=== PATIENT | male | born 1945 | race Caucasian/White ===

== ENCOUNTER 2019-03-12 11:57 | Inpatient (IN) | payer MEDICARE, OTHER ==
--- OUTSIDE RECORDS SUMMARY | 2019-03-12 12:06 | XMS REPORT | Continuity of Care Document ---
:1945 External Reference #:[id number] Author Name Juma Gage MD (transmitted by agent of provider Dalia Brumfield ) Address [address] [place] [address] Care Team Providers Name Role Phone Dioni Schultz II, MD - Hospitalist Care Team Information Hosting Engineer Unavailable Ric Lund D.OMandy - Internal Care Team Information Hosting Engineer Medicine Problems Description No Information Available Social History Type Date Description Comments Sex Unknown ETOH Use Never used alcohol Tobacco Use Start: Unknown End: Patient is a former smoker Unknown Recreational Drug Use Never Used Drugs Smoking Status Reviewed: 03/10/19 Patient is a former smoker Exercise Type/Frequency Does not exercise Allergies, Adverse Reactions, Alerts Active Allergies Reaction Severity Comments Date Valproic Acid Vomiting 03/10/2019 Medications Active Medications SIG Qnty Indications Ordering Provider Date Metoprolol Tartrate 1 by mouth Unknown 50mg twice a day Tablets Acetazolamide 1 by mouth Unknown 250mg Tablets twice a day Sertraline HCL 1 by mouth Unknown 25mg Tablets every day Immunizations Description No Information Available Vital Signs Date Vital Result Comment 03/10/2019 1:12pm Height 78 inches 6'6" Weight 240.00 lb Heart Rate 70 /min Pain Level 0 BMI (Body Mass Index) 27.7 kg/m2 Results Description No Information Available Procedures Description No Information Available Medical Devices Description No Information Available Encounters Description No Information Available Assessments Date Code Description Provider 03/10/2019 G91.9 Hydrocephalus, unspecified Juma Gage MD Plan of Treatment Future Appointment(s):05/24/2019 12:00 pm - Juma Gage MD at [facility]03/10/2019 - Juma Gage MDG91.9 Hydrocephalus, unspecifiedReferral:Ganesh Zavala M.D., NeurologyFollow up: RV in [address] Zavala's evaluation. Functional Status Description No Information Available Mental Status Description No Information Available Referrals Refer to Reason for Referral Status Appt Date Ganesh Zavala M.D. Eval for possible NPH Created [address] [place] [address] [place] [address] [phone]
[2019-03-12] MEDS ORDERED: NS 0.9% 500 ML* 500 ML IV ONE (12:17)
--- NOTE | 2019-03-12 12:22 | ED ---
Altered Mental Status - HPI Summary HPI Summary: This pt is a 73 Y/O M presenting to [facility] with a CC of weakness that has been increasing since the onset. He states that he vomited yesterday and has had a cough. He denies any fever, chills, erythema of eyes, sore throat, CP, SOB, abdominal pain, dysuria, hematuria, myalgia, edema, rash, or dizziness. He was seen by his neurosurgeon on Friday and has had increased confusion with increased incontinence including an increase in diarrhea. He has been unable to walk correctly for four years and has had a diagnosis of hydrocephalus. He has no other pertinent PMHx and denies any alcohol, smoking, or substance abuse. He has no alleviating or aggravating factors. - History Of Current Complaint Chief Complaint: EDWeakness Stated Complaint: BACK PAIN PER EMS Time Seen by Provider: 03/12/19 12:01 Hx Obtained From: Patient, Family/Budget Coordinator - Last Known Well Date: UNK Onset/Duration: Unknown, Still Present - states posibility of 4 years onset Timing: Constant Severity Initially: Moderate Severity Currently: Moderate Character: Confusion Aggravating Factor(s): Nothing Alleviating Factor(s): Nothing Associated Signs And Symptoms: Positive: Negative - chills, erythema of eyes, sore throat, CP, SOB, abdominal pain, dysuria, hematuria, myalgia, edema, rash, or dizziness, Nausea, Vomiting, Weakness. Negative: Fever Related History: Other: - has a Dx of hydrocephalus - Allergies/Home Medications Allergies/Adverse Reactions: Allergies Allergy/AdvReac Type Severity Reaction Status Date / Time acetaminophen Allergy Vomiting Verified 03/12/19 15:14 propoxyphene Allergy Vomiting Verified 03/12/19 15:14 Home Medications: Home Medications Metoprolol Tartrate TAB* [Lopressor TAB*] 50 mg PO BID 03/12/19 [History Confirmed 03/12/19] Sertraline* [Zoloft*] 25 mg PO DAILY 03/12/19 [History Confirmed 03/12/19] acetaZOLAMIDE TAB* [Diamox TAB*] 250 mg PO BID 03/12/19 [History Confirmed 03/12] PMH/Surg Hx/FS Hx/Imm Hx Previously Healthy: Yes Endocrine/Hematology History: Denies: Hx Diabetes Cardiovascular History: Denies: Hx Hypertension, Hx Pacemaker/ICD Respiratory History: Denies: Hx Asthma History: Denies: Hx Dialysis, Hx Renal Disease Sensory History: Denies: Hx Hearing Aid Psychiatric History: Denies: Hx Panic Disorder - Cancer History Hx Chemotherapy: No Hx Radiation Therapy: No - Surgical History Surgical History: Yes Surgery Procedure, Year, and Place: Left knee surgery, , [place] - Immunization History Immunizations Up to Date: Yes Infectious Disease History: No Infectious Disease History: Denies: Traveled Outside the [place] in Last 30 Days - Family History Known Family History: Negative: Respiratory Disease - Social History Occupation: Retired Lives: With Family Alcohol Use: None Hx Substance Use: No Substance Use Type: Reports: None Hx Tobacco Use: No Smoking Status (MU): Never Smoked Tobacco Review of Systems Negative: Fever, Chills Negative: Erythema Negative: Sore Throat Negative: Chest Pain Negative: Shortness Of Breath, Cough Positive: Vomiting, Diarrhea, Nausea. Negative: Abdominal Pain Positive: incontinence. Negative: dysuria, hematuria Negative: Myalgia, Edema Positive: Rash Neurological: Other - altered gait. Positive: Weakness All Other Systems Reviewed And Are Negative: Yes Physical Exam - Summary Physical Exam Summary: Constitutional: Well-developed, Well-nourished, Alert. (-) Distressed, odor of urinary incontinence. Skin: Warm, Dry HENT: Normocephalic; Atraumatic Eyes: Conjunctiva normal Neck: Musculoskeletal ROM normal neck. (-) JVD, (-) Stridor, (-) Tracheal deviation Cardio: Rhythm regular, rate normal, Heart sounds normal; Intact distal pulses; The pedal pulses are 2+ and symmetric. Radial pulses are 2+ and symmetric. (-) Murmur Pulmonary/Chest wall: Effort normal. (-) Respiratory distress, (-) Wheezes, (-) Rales Abd: Soft, (-) tenderness, (-) Distension, (-) Guarding, (-) Rebound Musculoskeletal: 1+ lower extremity edema Lymph: (-) Cervical adenopathy Neuro: Alert, Oriented x3 Psych: Mood and affect Normal Triage Information Reviewed: Yes Vital Signs On Initial Exam: Initial Vitals Temp Pulse Resp BP Pulse Ox 97.9 F 89 15 155/85 94 03/12/19 11:59 03/12/19 11:59 03/12/19 11:59 03/12/19 11:59 03/12/19 11:59 Vital Signs Reviewed: Yes Procedures - Sedation Patient Received Moderate/Deep Sedation with Procedure: No Diagnostics - Vital Signs Vital Signs Temp Pulse Resp BP Pulse Ox 03/12/19 11:59 97.9 F 89 15 155/85 94 - Laboratory Result Diagrams: 03/12/19 12:25 03/12/19 12:25 Lab Statement: Any lab studies that have been ordered have been reviewed, and results considered in the medical decision making process. - Radiology CXR Radiology Interpretation Completed By: Radiologist Summary of Radiographic Findings: NO ACTIVE CARDIOPULMONARY DISEASE IS NOTED. ED physician has reviewed this report. - CT Brain CT CT Interpretation Completed By: Radiologist Summary of CT Findings: AGAIN NOTED IS VENTRICULOMEGALY SUGGESTIVE OF A COMMUNICATING HYDROCEPHALUS SIMILAR TO FEBRUARY 12, 2019. ED physician has reviewed this report. - EKG 1220 Cardiac Rate: NL - 82 BPM EKG Rhythm: Sinus Rhythm ST Segment: Normal Ectopy: None Summary of EKG Findings: NSR at 82 BPM, P waves, QRS complex, and T waves are within normal limits, T waves and intervals are normal, no ischemic changes. This is a normal EKG. Interpreted by Dr. Abad 1255 03/12/2019. Altered Mental Statu Course/Dx - Course Course Of Treatment: This pt is a 73 Y/O M presenting to [facility] with a CC of weakness that has been increasing since the onset. He states that he vomited yesterday and has had a cough. He denies any fever, chills, erythema of eyes, sore throat, CP, SOB, abdominal pain, dysuria, hematuria, myalgia, edema, rash, or dizziness. He was seen by his neurosurgeon on Friday and has had increased confusion with increased incontinence including an increase in diarrhea. He has a PMHx of hydrocephalus. His PE found 1+ lower extremity edema and an odor of urinary incontinence. EKG at 1220 found NSR at 82 BPM, P waves, QRS complex, and T waves are within normal limits, T waves and intervals are normal, no ischemic changes. This is a normal EKG. His CXR found the following: NO ACTIVE CARDIOPULMONARY DISEASE IS NOTED. His Brain CT found the following: AGAIN NOTED IS VENTRICULOMEGALY SUGGESTIVE OF A COMMUNICATING HYDROCEPHALUS SIMILAR TO FEBRUARY 12, 2019. Dr. Gage, neurosurgery, was consulted at 1420 to discuss further work up and care for the pt. He recommends admitting the pt for further care to [facility] with a Dx of hydrocephalus and weakness. - Diagnoses Provider Diagnoses: Hydrocephalus, Weakness - Provider Notifications Discussed Care Of Patient With: Rebecca Gonsales Time Discussed With Above Provider: 14:37 Instructed by Provider To: Admit As Inpatient Admit/Transition Orders Completed By ED Provider: Yes Discharge ED - Sign-Out/Discharge Documenting (check all that apply): Patient Departure - admitted - Discharge Plan Condition: Stable Disposition: ADMITTED TO [facility] Referrals: Ric Lund DO [Primary Care Provider] - - Attestation Statements Document Initiated by Scribe: Yes Documenting Scribe: Josh Benson Provider For Whom Scribe is Documenting (Include Credential): Ricardo Abad MD Scribe Attestation: Josh Perez, scribed for Ricardo Abad MD on 03/12/19 at 1713. Status of Scribe Document: Ready Consult Consult: Dr. Gage, neurosurgery, was consulted at 1420 to discuss further work up and care for the pt. He recommends admitting the pt for further care to [facility] with a Dx of hydrocephalus and weakness. At 1438 the pt was admitted by Dr. Gonsales, hospitalist, for further care.
[2019-03-12 13:00] LABS: ABS Lymphocytes 1.6 10^3/ul (1.0-4.8); ABS Monocytes 0.7 10^3/ul (0-0.8); ABS Neutrophils 5.8 10^3/ul (1.5-7.7); Eosinophil % 0.4 %; Hematocrit 46 % (42-52); Hemoglobin 15.9 g/dL (14.0-18.0); Lymphocyte % 19.7 %; Mean Corpuscular HGB Conc 34 g/dL (31-36); Mean Corpuscular Hemoglobin 30 pg (27-31); Mean Corpuscular Volume 89 fL (80-94); Mean Platelet Volume 7.4 fL (7.4-10.4); Nucleated Red Blood Cells % 0.1; Platelet Count 207 10^3/uL (150-450); Red Blood Count 5.22 10^6 /uL (4.18-5.48); Red Cell Distribution Width 15 % (10-15); White Blood Count 8.2 10^3/uL (3.5-10.8)
[2019-03-12 13:24] LABS: Albumin/Globulin Ratio 1.3 (1-3); BUN/Creatinine Ratio 21.8 (8-20); Calcium 8.9 mg/dL (8.6-10.3); EGFR African American 87.9 (>60); EGFR Non-African American 72.6 (>60); Globulin 3.2 g/dL (2-4); Potassium 4.1 mmol/L (3.5-5.0); Total Bilirubin 0.5 mg/dL (0.2-1.0); Total Protein 7.2 g/dL (6.4-8.9)
[2019-03-12 13:27] LABS: Activated Partial Thrombo Time 19.1 seconds (26.0-38.0)
[2019-03-12 14:07] LABS: Urine Appearance Clear; Urine Bilirubin Negative (Negative); Urine Blood 1+ (Negative); Urine Color Yellow; Urine Glucose Negative (Negative); Urine Ketones Negative (Negative); Urine Nitrite Negative (Negative); Urine Protein Negative (Negative); Urine Specific Gravity 1.021 (1.010-1.030); Urine Urobilinogen Negative (Negative)
[2019-03-12 14:09] LABS: Urine Bacteria Absent (Absent); Urine Red Blood Cell 3+(>10/hpf) (Absent); Urine Squamous Epithelial Cell Present (Absent); Urine White Blood Cell Trace(0-5/hpf) (Absent)
[2019-03-12] MEDS ORDERED: NS 0.9% 1000 ML** 1,000 ML IV ONE (16:05)
[2019-03-12 17:31] LABS: TSH (Thyroid Stimulating Horm) 1.79 mcIU/mL (0.34-5.60)
[2019-03-12 17:35] LABS: Free T4 0.92 ng/dL (0.61-1.12)
[2019-03-12 17:43] LABS: Folate 13.83 ng/mL (>3.99)
[2019-03-12 20:02] LABS: C Reactive Protein 1.84 mg/L (<8.01)
--- NOTE | 2019-03-12 20:05 | CONS ---
CONSULTATION REPORT: DATE OF CONSULT: 03/12/19 HISTORY OF PRESENT ILLNESS: The patient is a very pleasant 73-year-old gentleman who was seen in our office recently and has been evaluated for normal pressure hydrocephalus. The patient has long history of memory deficits and difficulty with his balance. The patient was evaluated by Dr. Spangler in 2016 and because of MRI revealing possible hydrocephalus, he had undergone lumbar puncture and at that time, the patient's condition was not considered to be improved after that lumbar puncture, although his reported to me that when he returned home, he had improvement of his ability to ambulate. The patient for the last 6 months has been having urinary incontinence. The patient was referred to Dr. Zavala for further evaluation. He comes to the emergency room today for generalized weakness and an episode of vomiting yesterday and cough. The patient also was found to be dehydrated and has a history of diarrhea. The patient has difficulties with his ambulation at his baseline, has difficulty with his memory and he is reported to have urinary incontinence. The patient's history was obtained by Dr. Abad in the emergency room and the patient's chart as well as from his history from the previous visit. PAST MEDICAL HISTORY: Not clear at this time. PAST SURGICAL HISTORY: Left knee surgery. HOME MEDICATIONS: 1. Metoprolol succinate. 2. Diamox. ALLERGIES: The patient is allergic to ACETAMINOPHEN and PROPOXYPHENE. FAMILY HISTORY: Not known at this time. SOCIAL HISTORY: Tobacco negative. Alcohol negative. Recreational drug use negative. PHYSICAL EXAM: On physical examination, the patient is not in acute distress. He is awake, alert, oriented x3. His pupils are equal and reactive. Cranial nerves II through XII are grossly intact. Motor 4-5/5 in all extremities. No pronator drift. Sensory grossly intact to light touch. Deep tendon reflexes + 1 bilaterally. No clonus, no Babinski. Neal's negative. The patient has no tenderness to palpation of the thoracic and lumbar spine. He has free range of motion of the cervical spine. DIAGNOSTIC STUDIES/LAB DATA: The patient had a CT scan of the brain today that revealed ventriculomegaly and cerebral atrophy with suspicion of hydrocephalus. Recent MRI imaging as well as today's CT was reviewed with Dr. Lazaro and there does not seem to be any difference in his imaging back to other studies from 2016. ASSESSMENT: The patient is a very pleasant 73-year-old gentleman with history of cognitive decline, memory difficulties, balance problems as well as incontinence with CT scan findings consistent with hydrocephalus with a clinical suspicion for possible normal pressure hydrocephalus. PLAN: The patient at this point is doing quite well neurologically. According to recent CT findings, there is not a significant change in the ventricular size. I think that his clinical exam as well as his CT scan findings are stable. Dr. Gonsales from the hospitalist team has kindly agreed to admit the patient and he has contacted Dr. Zavala for further evaluation. Repeat MRI of brain may be considered if other etiologies for altered mental status are needed to be excluded. Thank you for allowing us to participate in the care of this patient. Please do not hesitate to contact our office in case if you have any further questions or concerns regarding the care of this patient. [id number]/[facility] #: [id number] MTDD
[2019-03-12 20:07] LABS: Myoglobin 233.2 ng/mL (17.4-105.7)
--- NOTE | 2019-03-12 20:45 | HP ---
CC: Ric Lund DO * HISTORY AND PHYSICAL: DATE OF ADMISSION: 03/12/19 PRIMARY CARE PHYSICIAN: Ric Lund DO. HEALTHCARE PROXY: Ledy Holley, his , phone number [phone]. CODE STATUS: Full. CHIEF COMPLAINT: Multiple falls at home associated with incontinence. HISTORY OF PRESENT ILLNESS: Mr. Holley is a 73-year-old man with a history of hypertension, possible history of NPH, who is presenting with progressive weakness and multiple falls for days. Of note, the patient is a poor historian and was unable to answer most questions. The patient states that he just falls randomly at home and when he does fall, he is unable to get himself up and his also has difficulty bringing him up as well. He denies head strike or loss of consciousness when he falls. He states he has significant lower extremity weakness. He states he falls "for the dumbest reasons" and sometimes just drops down on the ground. He has also been experiencing incontinence of urine, but not of stool. Of note, the patient was seen by Neurosurgery 2 days prior to presentation for his history of NPH and was at his baseline of health at that time, but then since then has become increasingly more confused. He denies fevers, chills, dysuria, new rash, headache, slurred speech. PAST MEDICAL HISTORY: 1. Admission in 2016 for confusion, weakness, gait instability, and incontinence. The patient had LP done with opening pressure at the upper limit of normal. It is unclear how significantly his symptoms improved after that time. 2. Hypertension. 3. Major depressive disorder. HOME MEDICATIONS: 1. Metoprolol tartrate 50 mg twice a day. 2. Acetazolamide 250 mg twice a day. 3. Sertraline 25 mg daily. ALLERGIES: TYLENOL causes vomiting. PROPOXYPHENE causes vomiting. FAMILY HISTORY: Mother passed in her 80s from ruptured aortic aneurysm. Father passed at 59 from infection. SOCIAL HISTORY: The patient lives at home with his . 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 He states that he smoked briefly during the war when the cigarettes were free, but has not smoked since. He denies recreational drug or alcohol use. REVIEW OF SYSTEMS: A complete 10-point review of systems was performed and pertinent positives and negatives are listed in the HPI. PHYSICAL EXAMINATION GENERAL: He is a well-appearing man in no acute distress, who is alert and interactive, occasionally jokes. The patient is malodorous from urinary incontinence. VITAL SIGNS: Afebrile, heart rate 80s, blood pressure 120/71, respiratory rate 18, oxygen saturation 97% on room air. HEENT: OP clear. Moist mucous membranes. NECK: Supple. Able to touch chin to chest without pain. LUNGS: Clear to auscultation bilaterally. HEART: Regular rate and rhythm. No murmurs, gallops, or rubs. ABDOMEN: Soft. Nontender, nondistended. No suprapubic tenderness or fullness. LOWER EXTREMITIES: Without edema. NEURO: A and O x3. CN II through XII intact. No slurred speech. Sensation intact in 4 extremities. Upper extremities 5/5 strength, lower 4/5 strength. DIAGNOSTIC STUDIES/LAB DATA: CBC, BMP, LFTs, and UA unremarkable. Chest x-ray without active cardiopulmonary disease. Brain CT without contrast with ventriculomegaly suggestive of a communicating hydrocephalous similar to 02/12/19. EKG with normal sinus rhythm, rate 82. ASSESSMENT AND PLAN: Mr. Holley is a 73-year-old man with a history of normal pressure hydrocephalus, who is presenting with weakness and urinary incontinence and intermittent episodes of confusion. His labs and brain CT were unremarkable. 1. Weakness. Appreciate neuro consult. The patient is pending brain MRI and workup for thyroid disorder, inflammatory disorder, or B12 deficiency. The patient was also seen and evaluated by Dr. Gage who sees no need for acute neurosurgical intervention at this time. PT and OT have been ordered. The patient did report thirst and it was noted that he was unable to produce urine and when straight cathed, only produced 100 cc, so we will continue the patient on gentle IV hydration. We will continue the patient's home acetazolamide. 2. Hypertension. Continue the patient's home metoprolol. 3. Major depressive disorder. Continue home sertraline 25 mg daily. 4. DVT prophylaxis: Initiate enoxaparin 40 mg subcu daily. 5. Code status: Full code. TIME SPENT: Approximately 60 minutes was spent on admission of this patient, more than half of which was spent at bedside for interview and exam. [id number]/[facility] #: [id number] [facility]
[2019-03-12] MEDS: Enoxaparin(*) 40 MG/0.4 ML SYR SUBCUT SCH (21:09)
[2019-03-12] MEDS: Metoprolol Succinate XL TAB* 100 MG PO SCH (21:10)
[2019-03-12] MEDS: NS 0.9% 1000 ML** 1,000 ML IV SCH (21:10)
--- NOTE | 2019-03-12 22:25 | CONS ---
CC: Dr. Ric Lund CONSULTATION REPORT: DATE OF CONSULT: 03/12/19 PRIMARY CARE PROVIDER: Dr. Ric Lund. REASON FOR CONSULTATION: History of normal-pressure hydrocephalus, worsening weakness. HISTORY OF PRESENT ILLNESS: Mr. Holley is a 73-year-old gentleman with a history of progressive ga it difficulty, bladder incontinence, memory loss, also a history of hyperlipidemia, cataracts, knee s urgery on the left, who has a long history of diagnosed normal-pressure hydrocephalus. He was initia lly seen by Dr. Miranda in our hospital back in 2016. At that time, he was noted to have months of dec reasing progressive memory loss repeating the same question and remembering conversations. His appeti te had been poor. He was having urinary incontinence. He had a slow and shuffling gait, and he had an MRI at that time that was concerning for normal- pressure hydrocephalus. During that hospitalizat ion, he did have a lumbar puncture and high volume tap and apparently did not have much improvement a t that time, but when he got home, his noted that he did improve, so there were some question as to whether or not he truly did have normal-pressure hydrocephalus responsive to a high volume tap. In any event, he has not been seen since that time by our neurology group. He was recently admitted to the hospital on 02/12/19. At that time, he had a very marked decline in his status that occurred within hours. He became progressively weak, could not walk, had bladder incontinence. He had one ep isode of stool incontinence as well. His noted that he seemed more sleepy and tired. He was ul timately admitted to [facility] where workup including an MRI and CT scan reportedly show conc marian for normal-pressure hydrocephalus. He also was diagnosed with bronchitis and was treated aggress ively. He subsequently was discharged to a physical therapy unit and was just discharged home a [facility] over a week ago. His states that he had been better. He was able to walk with some assistan ce, but he continued to be incontinent of urine, although no bowel incontinence. She noted that his memory was at baseline with poor short-term memory asking the same questions over and over. No signi ficant behavioral changes. He had no falls since that time. He has had no fever or chills. He denie s any shortness of breath, dyspnea on exertion or other medical problems since his discharge from the [facility]. On Friday night of this week, he seemed to be taking another precipitous decline. He carlota me progressively more weak, became more incontinent of urine, could not get up out of chair. This pe rsisted on and finally his brought him to the hospital today because he is progressivel y worsening, getting weaker, getting more confused, and he was having significant bladder incontinenc e, no bowel incontinence. His states that this was similar in presentation to his hospitalati on in January of 2017 as well as to his prior hospitalization in May of 2015. She states that all 3 episodes were similar in nature. He is being admitted today for worsening mental status, worsenin g weakness. PAST MEDICAL HISTORY: As noted above. MEDICATIONS: At home include: 1. Metoprolol 50 mg b.i.d. 2. Acetazolamide 250 mg p.o. b.i.d., which he was put on at his last hospitalization in [place]. 3. Sertraline 25 mg p.o. daily. ALLERGIES: ACETAMINOPHEN and PROPOXYPHENE. FAMILY HISTORY: There is a history of dementia, otherwise no significant family medical history. 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 No tobacco or alcohol use reported by his . REVIEW OF SYSTEMS: Review of systems in 14-organ systems was difficult to obtain by the patient carlota use he has poor insight, but his states that he has had no headaches, nausea, vomiting, diarrhea or constipation. No chest pain or shortness of breath. No fevers. He otherwise until Friday wa s improving. PHYSICAL EXAM: Vital signs in the hospital, he is afebrile 97.9, heart rate of 88, respiratory rate of 17, satting 98% to 99% on room air, blood pressure 139/85. In general, he is a well-developed, we ll-nourished, tall gentleman in no acute distress, lying in his hospital bed sleeping comfortably. Alona madison did awaken to voice. His is at the bedside and was able to provide some history. HEENT: Normo cephalic, atraumatic. His sclerae are anicteric. His mucous membranes are slightly dry. His oropha rynx is clear. His nares are patent. His neck is somewhat stiff in all directions. No meningismus appreciated. Chest is clear to auscultation bilaterally. Cardiovascular: Regular rate and rhythm w ithout murmurs. Abdomen is nontender. Extremities: There is no significant cyanosis or clubbing. There is some 1+ edema in the legs bilaterally, nonpitting. His skin is otherwise warm and dry. On neurologic exam, he is awake, he is alert, he is oriented to person only. His speech is fluent, but he is hypophonic and has a positive speech. He did answer questions at times not appropriately. His recall of recent and remote events is impaired. He is oriented only to person. Mood is dysthymic. Affect mood congruent. Cranial Nerves: Pupils are equal and round and reactive to light. Extraocu lar muscles: He has some difficulty with vertical gauze persistence. No slow saccades appreciated. No nystagmus appreciated. No diplopia or apoptosis appreciated. His face appears symmetric. His f acial sensation is intact to light touch. Hearing is intact bilaterally. Palate raises symmetricall y. Tongue is midline. Motor Exam: He spontaneously moves all extremities antigravity. He has 5/5 strength in the upper and lower extremities. He is able to maintain extended arms and legs without dr ift. His tone is increased significantly in the upper and lower extremities. He had some cogwheelin g in the right upper extremity with distractions, more so than the left. He had no significant resti ng tremor, although he did have a jaw tremor at times when distracted. His bapook-qb-eedg was slow. Rapid alternating movements including finger tap, hand clasp, pronation, and supination were very di fficult on the left more so than the right, but they were slow. Sensation is intact to light touch a nd pinprick throughout. DTRs were down throughout, trace at the patella, trace at the biceps and tri ceps, absent at the ankles, equivocal Babinski's. Gait: I attempted to get him up with the help of nurse. He was very unsteady on his feet, very slow to get up and could not maintain posture or stanc e, once we got him up, so we sat him back down. I was unable to really evaluate his gait. DIAGNOSTIC STUDIES/LAB DATA: Lab work includes an INR of 1.0. PTT of 19.1. CBC with diff, which is in normal limits. Chemistry: Carbon dioxide of 20, BUN and creatinine of 21 and 0.8, glucose of 10 7. LFTs normal. Urine showed 1+ blood, 3+ rbc's. He also had a chest x-ray done, which showed no active cardiopulmonary disease. He also had a brain CT done, which showed ventriculomegaly suggestive of communicating hydrocephalus similar to 02/12/19. ASSESSMENT AND PLAN: Mr. Holley is a 73-year-old gentleman with a known history of ventriculomegal y, gait abnormalities, urinary incontinence, memory difficulties dating back to May of 2015 if not before. He was evaluated in the hospital then and it was felt that he likely had normal-pressure hyd rocephalus, although he did not have a good response to a large volume tap. Subsequently though paul ral days later, his reported that he did improve. He was recently seen by Dr. Gage in [facility], who agreed that his ventricles were large and given his symptoms he might indeed have normal-pre ssure hydrocephalus. He was going to be referred to me, but on Friday, the patient took a dramati c turn for the worse, became very weak, more confused, more incontinent of urine, unable to ambulate, and he worsened over the next day. Finally, his brought him to the hospital today because he c ould not get up, he was very confused, and was incontinent. On examination today, I could not evalua te his gait, clearly he has some memory deficits, and he is wearing a diaper and is incontinent of ur ine, not stool. He has Parkinsonian symptoms on examination and I worried about the possibility of s omething like a Lewy body dementia. His denies any lightheadedness. There is a unilateral natu re to his cogwheeling rigidity and rapid alternative movement more so on the left than the right. He does not have any significant resting tremor, although he did have a jaw tremor with distraction. H is describes his gait is very shuffling in small steps. All of this lends itself to the idea th at he may be suffering from either Lewy body dementia or Parkinson's associated dementia. He did hav e some difficulty with upward gaze, but has not been falling. PSP and multisystem atrophy are also wi thin the differential as well. At this point, he is being admitted for further workup. We are going to get an MRI to make sure he has not had an acute event, which might have caused his rapid decline on Friday. He is going to be hydrated and we will continue to search for any medical issues, whic h might be causing his worsening. This could just be worsening of his disease, although the sudden c hanges atypical for normal-pressure hydrocephalus or Lewy body dementia suggesting that there may be something other causing his acute worsening. With this said, I would like to work him up again for n ormal-pressure hydrocephalus, but I explained to his that this is something that will likely nee d to be done on an outpatient basis. Currently, he is not even able to walk, so I would not be able to evaluate his gait for any improvement, and it sounds like he may have a Parkinsonian component. I n addition, I would want to get better sense of his cognitive functioning, but I would not want to do that inpatient while he is acutely ill. I explained that what we may do is try to stabilize him, ge t him some physical therapy, maybe some rehab, so that he can get to a baseline. At that point, I wi ll see him back. We will consider large volume tap with appropriate evaluation before and after. Th ere is also the option of a normal-pressure hydrocephalus clinic at the [facility] that we can consider as well. He will be admitted to the medicine service, I will continue to follow leonidas aguillon. I have no further recommendations at this time. Thank you for the opportunity to participate in the care of this very interesting patient. [id number]/[facility] #: [id number]
[2019-03-12] MEDS: acetaZOLAMIDE TAB* 250 MG PO SCH (22:31)
--- NOTE | 2019-03-13 07:51 | PN ---
Subjective Date of Service: 03/13/19 Interval History: Admitted yesterday for gait abnormalities, inability to walk, and recurrent falls. Brain MRI unremarkable - largely unchanged from last month. Labs unrevealing except for mildly increased CK. No acute events overnight. Will DC IVF if good PO today. Neuro following. Pt states he feels well. Doesn't remember that he worked with PT today. Still feels weak. Doesn't think he can walk. Denies headache. Objective Active Medications: Acetazolamide (Diamox Tab*) 250 mg PO BID [facility] Last Admin: 03/12/19 22:31 Dose: 250 mg Enoxaparin Sodium (Lovenox(*)) 40 mg SUBCUT Q24H [facility] Last Admin: 03/12/19 21:09 Dose: 40 mg Sodium Chloride (Ns 0.9% 1000 Ml) 1,000 mls @ 100 mls/hr IV PER RATE [facility] Last Admin: 03/12/19 21:10 Dose: 100 mls/hr Metoprolol Succinate (Toprol Xl Tab*) 100 mg PO BEDTIME [facility] Last Admin: 03/12/19 21:10 Dose: 100 mg Sertraline HCl (Zoloft*) 25 mg PO DAILY [facility] Vital Signs - 8 hr 03/13/19 03/13/19 01:00 04:30 Temperature 98.0 F 97.5 F Pulse Rate 85 77 Respiratory 16 16 Rate Blood Pressure 100/52 110/58 (mmHg) O2 Sat by Pulse 96 98 Oximetry Oxygen Devices in Use Now: None Appearance: no acute distress, pleasant Eyes: No Scleral Icterus Ears/Nose/Mouth/Throat: Clear Oropharnyx, Mucous Membranes Moist Neck: NL Appearance and Movements; NL JVP, Trachea Midline Respiratory: Symmetrical Chest Expansion and Respiratory Effort, Clear to Auscultation Cardiovascular: NL Sounds; No Murmurs; No JVD, RRR Abdominal: NL Sounds; No Tenderness; No Distention, No Hepatosplenomegaly Extremities: No Edema Skin: No Rash or Ulcers Neurological: - - AOx3 Result Diagrams: 03/12/19 12:25 03/13/19 08:04 Assess/Plan/Problems-Billing Assessment: 73M with a history of normal pressure hydrocephalus presents with weakness, urinary incontinence, and intermittent episodes of confusion. His labs, brain CT and brain MRI are unrevealing for etiology of acute change. - Patient Problems (1) Weakness Comment: Unclear etiology, although does have h/o NPH. Neuro thinks recent symptoms too acute to fit this diagnosis. Labs and imaging largely unremarkable. - f/u PT - f/u Neuro (2) NPH (normal pressure hydrocephalus) Comment: Large volume LP in 2016 with improvement in symptoms. - cont Diamox - f/u Neuro, PT (3) Depression Comment: - cont home sertraline (4) Hypertension Comment: - cont metoprolol, pending outside PCP records (5) DVT prophylaxis Comment: - subq lovenox
[2019-03-13 08:34] LABS: BUN/Creatinine Ratio 20.6 (8-20); Calcium 8.1 mg/dL (8.6-10.3); EGFR African American 92.1 (>60); EGFR Non-African American 76.1 (>60); Potassium 3.8 mmol/L (3.5-5.0)
[2019-03-13] MEDS: NS 0.9% 1000 ML** 1,000 ML IV SCH (10:28)
[2019-03-13] MEDS: acetaZOLAMIDE TAB* 250 MG PO SCH ×2 (10:29→20:18)
[2019-03-13] MEDS: Sertraline* 25 MG TAB PO SCH (10:29)
--- NOTE | 2019-03-13 16:29 | PN ---
Subjective Date of Service: 03/13/19 Length of Stay: 1 Days Interval History: No new issues overnight. He remains pleasantly confused. He was able to walk from room 419 to room 403 with one assist although it made him feel tired. He remains incontinent of urine. MRI: No acute issues. Ventriculomegaly appears stable from 2015 Family History: Unchanged from Admission Social History: Unchanged from Admission Past Medical History: Unchanged from Admission Objective Active Medications: Acetazolamide (Diamox Tab*) 250 mg PO BID [facility] Last Admin: 03/13/19 10:29 Dose: 250 mg Enoxaparin Sodium (Lovenox(*)) 40 mg SUBCUT Q24H [facility] Last Admin: 03/12/19 21:09 Dose: 40 mg Metoprolol Succinate (Toprol Xl Tab*) 100 mg PO BEDTIME [facility] Last Admin: 03/12/19 21:10 Dose: 100 mg Sertraline HCl (Zoloft*) 25 mg PO DAILY [facility] Last Admin: 03/13/19 10:29 Dose: 25 mg Vital Signs 03/12/19 03/12/19 03/12/19 16:35 18:24 19:00 Temperature 98.5 F Pulse Rate 90 90 Respiratory 18 16 16 Rate Blood Pressure 120/71 129/61 (mmHg) O2 Sat by Pulse 97 97 Oximetry 03/12/19 03/12/19 03/12/19 19:07 20:00 20:45 Temperature 98.4 F 98.8 F Pulse Rate 91 94 Respiratory 16 18 Rate Blood Pressure 149/73 128/56 (mmHg) O2 Sat by Pulse 99 96 98 Oximetry 03/13/19 03/13/19 01:00 04:30 Temperature 98.0 F 97.5 F Pulse Rate 85 77 Respiratory 16 16 Rate Blood Pressure 100/52 110/58 (mmHg) O2 Sat by Pulse 96 98 Oximetry Intake and Output Last 24 Hours 03/11/19 03/12/19 03/13/19 03/14/19 06:59 06:59 06:59 06:59 Intake Total 2246 1030 Output Total 300 300 Balance 1946 730 Weight 175 lb Intake: IV Fluids 1766 NS (0.9%) 1766 Oral 480 1030 Output: Urine 300 300 Other: Estimated Void Large # Bowel Movements 0 1 Estimated Stool Amount Medium # Voids 1 Oxygen Devices in Use Now: None Neurology Exam: General: Well nourished, well developed, and in no acute distress HEENT: Normocephalic/atraumatic, sclera anicteric, mucous membranes moist Neck: Supple Chest: Clear to auscultation bilaterally Cardiovascular: Regular rate and rhythm without murmurs, rubs, gallops Abdomen: Soft, non-tender/non-distended Extremities: No clubbing, cyanosis, or edema Neurological Findings: Awake, alert, and oriented to person only Speech: fluent without dysarthria,hypophonia Decreased facial expression and blink Cranial Nerve: PERRL, EOM intact with some mild difficulty with vertical gaze, no nystagmus, face symmetric bilaterally, hearing intact to finger rub bilaterally, palate elevates symmetrically, tongue midline Motor: 5/5 throughout with bradykinesia, increased tone in the UE L>R, LE L>R Sensation: grossly intact to LT Deep Tendon Reflex: down throughout No resting tremor, has difficulty with GLORIA on the L>R Gait: He could not get up off the bed during my exam. He was able to walk earlier but now feels "too tired." Result Diagrams: 03/12/19 12:25 03/13/19 08:04 Microbiology and Other Data: Microbiology 03/12/19 12:25 Aerobic Blood Culture - Preliminary Blood Venous No Growth Day 1 Anaerobic Blood Culture - Preliminary No Growth Day 1 03/12/19 12:25 Aerobic Blood Culture - Preliminary Blood Venous No Growth Day 1 Anaerobic Blood Culture - Preliminary No Growth Day 1 03/12/19 13:51 Urine Culture - Final Urine No Growth (<1,000 CFU/mL) Assessment/Plan Mr. Holley is a 73-year-old gentleman with a known history of ventriculomegaly , gait abnormalities, urinary incontinence, memory difficulties dating back to May of 2015 if not before. He was evaluated in the hospital then and it was felt that he likely had normal-pressure hydrocephalus, although he did not have a good response to a large volume tap. Subsequently though several days later, his reported that he did improve. He was recently seen by Dr. Gage in clinic, who agreed that his ventricles were large and given his symptoms he might indeed have normal-pressure hydrocephalus. He was going to be referred to me, but on Friday, the patient took a dramatic turn for the worse, became very weak, more confused, more incontinent of urine, unable to ambulate, and he worsened over the next day. Finally, his brought him to the hospital yesterday because he could not get up, he was very confused, and was incontinent. While his MRI does show evidence of NPH, I worry about underlying LBD vs. Parkinson's associated dementia. Some findings consistent with PSP as well. Currently, his notes that he is not walking at his baseline. I am inclined , given his deconditioned state, to hold off on a full NPH evaluation until he has had a chance to return to baseline. There is an NPH clinic at [place] that does a full workup including CSF drain over several days. Given his age and unusual presentation, I think he would be a good candidate for this. He may need SNF for rehab vs. OP rehab at home. Will plan to follow him up in my clinic and arrange for further evaluation as an outpatient. I would like to make sure we give him every opportunity to do well on the evaluation. His last evaluation in the hospital showed no real improvement although his noted improvement after about 3 days. I will continue to follow along. .
[2019-03-13] MEDS: Enoxaparin(*) 40 MG/0.4 ML SYR SUBCUT SCH (18:22)
[2019-03-13] MEDS: Metoprolol Succinate XL TAB* 100 MG PO SCH (20:18)
--- NOTE | 2019-03-14 07:36 | PN ---
Subjective Date of Service: 03/14/19 Interval History: No acute events overnight. Pt worked well with PT yesterday, and they recommend PT after discharge. would like to purse [facility] vs SNF, if that is an option. PMRU a consideration, as well, if Neuro has diagnosed with with Parkinsons. Objective Active Medications: Acetazolamide (Diamox Tab*) 250 mg PO BID [facility] Last Admin: 03/13/19 20:18 Dose: 250 mg Enoxaparin Sodium (Lovenox(*)) 40 mg SUBCUT Q24H [facility] Last Admin: 03/13/19 18:22 Dose: 40 mg Metoprolol Succinate (Toprol Xl Tab*) 100 mg PO BEDTIME [facility] Last Admin: 03/13/19 20:18 Dose: 100 mg Sertraline HCl (Zoloft*) 25 mg PO DAILY [facility] Last Admin: 03/13/19 10:29 Dose: 25 mg Vital Signs - 8 hr 03/14/19 03/14/19 02:45 07:22 Temperature 97.6 F 98.4 F Pulse Rate 70 68 Respiratory 18 18 Rate Blood Pressure 125/59 130/69 (mmHg) O2 Sat by Pulse 100 98 Oximetry Oxygen Devices in Use Now: None Appearance: well appearing, NAD, frequently smiles Eyes: No Scleral Icterus Ears/Nose/Mouth/Throat: Clear Oropharnyx, Mucous Membranes Moist Neck: NL Appearance and Movements; NL JVP, Trachea Midline Respiratory: Symmetrical Chest Expansion and Respiratory Effort, Clear to Auscultation Cardiovascular: NL Sounds; No Murmurs; No JVD, RRR Abdominal: NL Sounds; No Tenderness; No Distention, No Hepatosplenomegaly Extremities: - - trace edema over ankles Skin: No Rash or Ulcers Neurological: - - alert to self and , only Result Diagrams: 03/12/19 12:25 03/13/19 08:04 Microbiology and Other Data: Microbiology 03/12/19 12:25 Aerobic Blood Culture - Preliminary Blood Venous No Growth Day 1 Anaerobic Blood Culture - Preliminary No Growth Day 1 03/12/19 12:25 Aerobic Blood Culture - Preliminary Blood Venous No Growth Day 1 Anaerobic Blood Culture - Preliminary No Growth Day 1 03/12/19 13:51 Urine Culture - Final Urine No Growth (<1,000 CFU/mL) Assess/Plan/Problems-Billing Assessment: 73M with a history of normal pressure hydrocephalus presents with weakness, urinary incontinence, and intermittent episodes of confusion. His labs, brain CT and brain MRI are unrevealing for etiology of acute change. - Patient Problems (1) Weakness Comment: Unclear etiology, although does have h/o NPH. Neuro thinks recent symptoms too acute to fit this diagnosis. Labs and imaging largely unremarkable. Suspision for LBD vs Parkinsons disease. - f/u PT, will try for STR placement - f/u Neuro (2) NPH (normal pressure hydrocephalus) Comment: Large volume LP in 2016 with unclear improvement in symptoms. - cont Diamox - f/u Neuro, PT (3) Depression Comment: - cont home sertraline (4) Hypertension Comment: - cont metoprolol, pending outside PCP records (5) DVT prophylaxis Comment: - subq lovenox
[2019-03-14] MEDS: acetaZOLAMIDE TAB* 250 MG PO SCH ×2 (08:48→20:52)
[2019-03-14] MEDS: Sertraline* 25 MG TAB PO SCH (08:48)
--- NOTE | 2019-03-14 12:10 | PN ---
Subjective Date of Service: 03/14/19 Length of Stay: 2 Days Interval History: No new issues overnight. The patient worked with PT and did well. is at the bedside. Family History: Unchanged from Admission Social History: Unchanged from Admission Past Medical History: Unchanged from Admission Objective Active Medications: Acetazolamide (Diamox Tab*) 250 mg PO BID [facility] Last Admin: 03/14/19 08:48 Dose: 250 mg Enoxaparin Sodium (Lovenox(*)) 40 mg SUBCUT Q24H [facility] Last Admin: 03/13/19 18:22 Dose: 40 mg Metoprolol Succinate (Toprol Xl Tab*) 100 mg PO BEDTIME [facility] Last Admin: 03/13/19 20:18 Dose: 100 mg Sertraline HCl (Zoloft*) 25 mg PO DAILY [facility] Last Admin: 03/14/19 08:48 Dose: 25 mg Vital Signs 03/13/19 03/13/19 03/13/19 15:28 19:10 20:00 Temperature 97.7 F 97.4 F Pulse Rate 81 90 Respiratory 20 18 16 Rate Blood Pressure 118/64 118/61 (mmHg) O2 Sat by Pulse 98 99 99 Oximetry 03/13/19 03/14/19 03/14/19 23:00 02:45 07:22 Temperature 97 F 97.6 F 98.4 F Pulse Rate 85 70 68 Respiratory 18 18 18 Rate Blood Pressure 108/48 125/59 130/69 (mmHg) O2 Sat by Pulse 95 100 98 Oximetry 03/14/19 08:00 Temperature Pulse Rate Respiratory 18 Rate Blood Pressure (mmHg) O2 Sat by Pulse Oximetry Intake and Output Last 24 Hours 03/12/19 03/13/19 03/14/19 03/15/19 06:59 06:59 06:59 06:59 Intake Total 2246 1612 720 Output Total 300 575 Balance 1946 1037 720 Weight 175 lb 175 lb 11.2 oz Intake: IV Fluids 1766 462 NS (0.9%) 1766 462 Oral 480 1150 720 Output: Urine 300 575 Other: Estimated Void Large Medium # Bowel Movements 0 1 Estimated Stool Amount Medium # Voids 1 3 Oxygen Devices in Use Now: None Neurology Exam: General: Well nourished, well developed, and in no acute distress HEENT: Normocephalic/atraumatic, sclera anicteric, mucous membranes moist Neck: Supple Chest: Clear to auscultation bilaterally Cardiovascular: Regular rate and rhythm without murmurs, rubs, gallops Extremities: No clubbing, cyanosis, or edema Neurological Findings: Awake, alert, and oriented to person only Speech: fluent without dysarthria, hypophonia notied Decreased facial expression and blink Cranial Nerve: PERRL, EOM intact with some mild difficulty with vertical gaze, no nystagmus, face symmetric bilaterally, hearing intact to finger rub bilaterally, palate elevates symmetrically, tongue midline Motor: 5/5 throughout with bradykinesia, increased tone in the UE L>R, LE L>R No resting tremor, has difficulty with GLORIA on the L>R Result Diagrams: 03/12/19 12:25 03/13/19 08:04 Microbiology and Other Data: Microbiology 03/12/19 12:25 Aerobic Blood Culture - Preliminary Blood Venous No Growth Day 1 Anaerobic Blood Culture - Preliminary No Growth Day 1 03/12/19 12:25 Aerobic Blood Culture - Preliminary Blood Venous No Growth Day 1 Anaerobic Blood Culture - Preliminary No Growth Day 1 03/12/19 13:51 Urine Culture - Final Urine No Growth (<1,000 CFU/mL) Assessment/Plan 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 I explained to his that this would making putting a shunt in much more difficulty as it might help with the NPH but might not improve the PD associated memory issues. The plan will be to get him back into his home environment with either a bridge with SNF vs. home PT. Once he is stable, I will see him back in clinic and we will consider additional workup including the possibility of a formal NPH workup at [place]. I will need an appointment with the patient once he is home and stable and his can call to make that appointment. I will sign off for now but remain available for any new issues or concerns. .
[2019-03-14] MEDS: Enoxaparin(*) 40 MG/0.4 ML SYR SUBCUT SCH (18:24)
[2019-03-14] MEDS: Metoprolol Succinate XL TAB* 100 MG PO SCH (20:52)
[2019-03-15 06:40] LABS: BUN/Creatinine Ratio 16.3 (8-20); Calcium 8.3 mg/dL (8.6-10.3); EGFR African American 97.9 (>60); EGFR Non-African American 80.9 (>60); Magnesium 2.1 mg/dL (1.9-2.7); Potassium 3.6 mmol/L (3.5-5.0)
[2019-03-15] MEDS: Sertraline* 25 MG TAB PO SCH (07:59)
[2019-03-15] MEDS: acetaZOLAMIDE TAB* 250 MG PO SCH ×2 (07:59→20:08)
--- NOTE | 2019-03-15 15:04 | PN ---
Subjective Date of Service: 03/15/19 Interval History: Patient has no new complaints. He does not remember name or recommendations of neurologist over weekend. 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 Denies pain. States he has been up to chair today. Family History: Unchanged from Admission Social History: Unchanged from Admission Past Medical History: Unchanged from Admission Objective Active Medications: Acetazolamide (Diamox Tab*) 250 mg PO BID [facility] Last Admin: 03/15/19 07:59 Dose: 250 mg Enoxaparin Sodium (Lovenox(*)) 40 mg SUBCUT Q24H [facility] Last Admin: 03/14/19 18:24 Dose: 40 mg Influenza Virus Vaccine (Fluarix Quad [id number] Syr) 0.5 ml IM .ONCE ONE Stop: 03/16/19 09:01 Metoprolol Succinate (Toprol Xl Tab*) 100 mg PO BEDTIME [facility] Last Admin: 03/14/19 20:52 Dose: 100 mg Sertraline HCl (Zoloft*) 25 mg PO DAILY [facility] Last Admin: 03/15/19 07:59 Dose: 25 mg Vital Signs - 8 hr 03/15/19 03/15/19 03/15/19 07:15 08:00 11:15 Temperature 36.5 C 36.8 C Pulse Rate 68 65 Respiratory 18 18 16 Rate Blood Pressure 128/71 126/68 (mmHg) O2 Sat by Pulse 100 100 98 Oximetry Oxygen Devices in Use Now: None Appearance: alert, no distress Eyes: No Scleral Icterus Neck: No Thyroid Enlargement, Masses Respiratory: Symmetrical Chest Expansion and Respiratory Effort Cardiovascular: NL Sounds; No Murmurs; No JVD, RRR Abdominal: NL Sounds; No Tenderness; No Distention Neurological: - - oriented to place, month, year, not date/day, no tremor, + cogwheeling bilat L>R Lines/Tubes/Other Access: Clean, Dry and Intact Peripheral IV Result Diagrams: 03/12/19 12:25 03/15/19 05:55 Microbiology and Other Data: Microbiology 03/12/19 13:51 Urine Urine Culture - Final No Growth (<1,000 CFU/mL) 03/12/19 12:25 Blood Venous Aerobic Blood Culture - Preliminary 03/12/19 12:25 Blood Venous Anaerobic Blood Culture - Preliminary No Growth Day 3 No Growth Day 3 03/12/19 12:25 Blood Venous Aerobic Blood Culture - Preliminary 03/12/19 12:25 Blood Venous Anaerobic Blood Culture - Preliminary No Growth Day 3 No Growth Day 3 Assess/Plan/Problems-Billing Assessment: 73M with a history of normal pressure hydrocephalus presents with weakness, urinary incontinence, and intermittent episodes of confusion. His labs, brain CT and brain MRI are unrevealing for etiology of acute change. - Patient Problems (1) Parkinsons disease Current Visit: Yes Status: Acute Priority: High Code(s): G20 - PARKINSON' S DISEASE SNOMED Code(s): 25074474 Comment: -Neurology consult reviewed -Highly suspect PD, which would be new diagnosis -Will discuss trial of Sinemet with neurology -PMRU evaluation (2) Hypertension Current Visit: Yes Status: Acute Priority: Medium Code(s): I10 - ESSENTIAL (PRIMARY) HYPERTENSION SNOMED Code(s): 03185691 Comment: -cont metoprolol -Good control (3) NPH (normal pressure hydrocephalus) Current Visit: Yes Status: Acute Priority: High Code(s): G91.2 - ( IDIOPATHIC) NORMAL PRESSURE HYDROCEPHALUS SNOMED Code(s): 83493861 Comment: - Large volume LP in 2016 with unclear improvement in symptoms. - cont Diamox - f/u Neuro, PT (4) DVT prophylaxis Current Visit: Yes Status: Acute Priority: Low Code(s): Z29.9 - ENCOUNTER FOR PROPHYLACTIC MEASURES, UNSPECIFIED SNOMED Code(s): 619827491 Comment: - subq lovenox Status and Disposition: PMRU vs STR
[2019-03-15] MEDS: Enoxaparin(*) 40 MG/0.4 ML SYR SUBCUT SCH (17:31)
[2019-03-15] MEDS: Metoprolol Succinate XL TAB* 100 MG PO SCH (20:07)
[2019-03-16] MEDS ORDERED: Influenza VAC *QUAD* 2019-20* 0.5 ML SYRINGE IM ONE (09:00)
[2019-03-16] MEDS: acetaZOLAMIDE TAB* 250 MG PO SCH ×2 (09:28→23:25)
[2019-03-16] MEDS: Sertraline* 25 MG TAB PO SCH (09:28)
--- NOTE | 2019-03-16 17:04 | PN ---
Subjective Date of Service: 03/16/19 Interval History: Patient has no new complaints. He has learned to take off his bed alarm and walk from bed. No falls today. His memory is poor. Asking when he can leave hospital. Family History: Unchanged from Admission Social History: Unchanged from Admission Past Medical History: Unchanged from Admission Objective Active Medications: Acetazolamide (Diamox Tab*) 250 mg PO BID [facility] Last Admin: 03/16/19 09:28 Dose: 250 mg Enoxaparin Sodium (Lovenox(*)) 40 mg SUBCUT Q24H [facility] Last Admin: 03/15/19 17:31 Dose: 40 mg Metoprolol Succinate (Toprol Xl Tab*) 100 mg PO BEDTIME [facility] Last Admin: 03/15/19 20:07 Dose: 100 mg Sertraline HCl (Zoloft*) 25 mg PO DAILY [facility] Last Admin: 03/16/19 09:28 Dose: 25 mg Vital Signs - 8 hr 03/16/19 03/16/19 11:15 15:15 Temperature 36.7 C 36.3 C Pulse Rate 69 78 Respiratory 16 16 Rate Blood Pressure 114/58 124/67 (mmHg) O2 Sat by Pulse 100 100 Oximetry Oxygen Devices in Use Now: None Appearance: alert, no distress Eyes: No Scleral Icterus Neck: NL Appearance and Movements; NL JVP Respiratory: Symmetrical Chest Expansion and Respiratory Effort, Clear to Auscultation Cardiovascular: NL Sounds; No Murmurs; No JVD Nutrition: Taking PO's Result Diagrams: 03/12/19 12:25 03/15/19 05:55 Assess/Plan/Problems-Billing Assessment: 73M with a history of normal pressure hydrocephalus presents with weakness, urinary incontinence, and intermittent episodes of confusion. His labs, brain CT and brain MRI are unrevealing for etiology of acute change. - Patient Problems (1) Parkinsons disease Current Visit: Yes Status: Acute Priority: High Code(s): G20 - PARKINSON' S DISEASE SNOMED Code(s): 80105784 Comment: -Neurology consult reviewed -Highly suspect PD, which would be new diagnosis; continue PT/OT -Discussed trial of Sinemet with neurology -PMRU accepted, awaiting insurance approval (2) Hypertension Current Visit: Yes Status: Acute Priority: Medium Code(s): I10 - ESSENTIAL (PRIMARY) HYPERTENSION SNOMED Code(s): 32592803 Comment: -cont metoprolol -Good control (3) NPH (normal pressure hydrocephalus) Current Visit: Yes Status: Acute Priority: High Code(s): G91.2 - ( IDIOPATHIC) NORMAL PRESSURE HYDROCEPHALUS SNOMED Code(s): 60265100 Comment: - Large volume LP in 2016 with unclear improvement in symptoms. - cont Diamox - f/u Neuro, PT (4) DVT prophylaxis Current Visit: Yes Status: Acute Priority: Low Code(s): Z29.9 - ENCOUNTER FOR PROPHYLACTIC MEASURES, UNSPECIFIED SNOMED Code(s): 435079925 Comment: - SC lovenox Status and Disposition: PMRU in 1-2 days
[2019-03-16] MEDS: Enoxaparin(*) 40 MG/0.4 ML SYR SUBCUT SCH (17:42)
[2019-03-16] MEDS ORDERED: Carbidopa/Levodop 25/100 MG TAB(*) PO SCH (18:00)
[2019-03-16] MEDS: Metoprolol Succinate XL TAB* 100 MG PO SCH (23:26)
[2019-03-17] MEDS: Sertraline* 25 MG TAB PO SCH (09:44)
[2019-03-17] MEDS: acetaZOLAMIDE TAB* 250 MG PO SCH ×2 (09:44→22:32)
--- NOTE | 2019-03-17 11:25 | PN ---
Subjective Date of Service: 03/17/19 Interval History: Patient has no new complaints. He had an episode of being difficult to arouse overnight. He has also been sexually inappropriate with the nurses. Family History: Unchanged from Admission Social History: Unchanged from Admission Past Medical History: Unchanged from Admission Objective Active Medications: Acetazolamide (Diamox Tab*) 250 mg PO BID [facility] Last Admin: 03/17/19 09:44 Dose: 250 mg Enoxaparin Sodium (Lovenox(*)) 40 mg SUBCUT Q24H [facility] Last Admin: 03/16/19 17:42 Dose: 40 mg Metoprolol Succinate (Toprol Xl Tab*) 100 mg PO BEDTIME [facility] Last Admin: 03/16/19 23:26 Dose: 100 mg Sertraline HCl (Zoloft*) 25 mg PO DAILY [facility] Last Admin: 03/17/19 09:44 Dose: 25 mg Vital Signs - 8 hr 03/17/19 03/17/19 07:15 08:00 Temperature 36.3 C Pulse Rate 70 Respiratory 17 16 Rate Blood Pressure 127/70 (mmHg) O2 Sat by Pulse 98 98 Oximetry Oxygen Devices in Use Now: None Appearance: seated, alert Neck: No Thyroid Enlargement, Masses Respiratory: Clear to Auscultation Cardiovascular: NL Sounds; No Murmurs; No JVD, RRR Neurological: - - oriented to place, time Lines/Tubes/Other Access: Clean, Dry and Intact Peripheral IV Nutrition: Taking PO's Result Diagrams: 03/12/19 12:25 03/15/19 05:55 Microbiology and Other Data: Microbiology 03/12/19 13:51 Urine Urine Culture - Final No Growth (<1,000 CFU/mL) 03/12/19 12:25 Blood Venous Aerobic Blood Culture - Preliminary 03/12/19 12:25 Blood Venous Anaerobic Blood Culture - Preliminary No Growth Day 4 No Growth Day 4 03/12/19 12:25 Blood Venous Aerobic Blood Culture - Preliminary 03/12/19 12:25 Blood Venous Anaerobic Blood Culture - Preliminary No Growth Day 4 No Growth Day 4 Assess/Plan/Problems-Billing Assessment: 73M with a history of normal pressure hydrocephalus presents with weakness, urinary incontinence, and intermittent episodes of confusion. His labs, brain CT and brain MRI are unrevealing for etiology of acute change. - Patient Problems (1) Parkinsons disease Current Visit: Yes Status: Acute Priority: High Code(s): G20 - PARKINSON' S DISEASE SNOMED Code(s): 48667805 Comment: -Neurology consult reviewed -Highly suspect PD, which would be new diagnosis; continue PT/OT -Trial of Sinemet started yesterday, will increase today. -PMRU accepted, awaiting insurance approval (2) Hypertension Current Visit: Yes Status: Acute Priority: Medium Code(s): I10 - ESSENTIAL (PRIMARY) HYPERTENSION SNOMED Code(s): 17313342 Comment: -cont metoprolol -Good control (3) NPH (normal pressure hydrocephalus) Current Visit: Yes Status: Acute Priority: High Code(s): G91.2 - ( IDIOPATHIC) NORMAL PRESSURE HYDROCEPHALUS SNOMED Code(s): 91010449 Comment: - Large volume LP in 2016 with unclear improvement in symptoms. - cont Diamox - f/u Neuro, PT (4) DVT prophylaxis Current Visit: Yes Status: Acute Priority: Low Code(s): Z29.9 - ENCOUNTER FOR PROPHYLACTIC MEASURES, UNSPECIFIED SNOMED Code(s): 328924355 Comment: - SC lovenox Status and Disposition: PMRU or STR today or tomorrow. Best option for patient and new dx is PMRU.
[2019-03-17] MEDS: Carbidopa/Levodop 25/100 MG TAB(*) PO SCH ×2 (13:22→22:32)
[2019-03-17] MEDS: Enoxaparin(*) 40 MG/0.4 ML SYR SUBCUT SCH (18:55)
[2019-03-17] MEDS: Metoprolol Succinate XL TAB* 100 MG PO SCH (22:32)
[2019-03-18] MEDS: acetaZOLAMIDE TAB* 250 MG PO SCH ×2 (08:12→20:56)
[2019-03-18] MEDS: Carbidopa/Levodop 25/100 MG TAB(*) PO SCH ×2 (08:12→20:56)
[2019-03-18] MEDS: Sertraline* 25 MG TAB PO SCH (08:12)
[2019-03-18] MEDS: Enoxaparin(*) 40 MG/0.4 ML SYR SUBCUT SCH (17:30)
--- NOTE | 2019-03-18 18:10 | PN ---
Subjective Date of Service: 03/18/19 Interval History: Patient has no new complaints. Eating dinner. Walked better with PT today per notes. Tolerating sinemet w/o N/V Family History: Unchanged from Admission Social History: Unchanged from Admission Past Medical History: Unchanged from Admission Objective Active Medications: Acetazolamide (Diamox Tab*) 250 mg PO BID [facility] Last Admin: 03/18/19 08:12 Dose: 250 mg Carbidopa/Levodopa (Sinemet 25/100 Tab(*)) 1 tab PO BID [facility] Last Admin: 03/18/19 08:12 Dose: 1 tab Enoxaparin Sodium (Lovenox(*)) 40 mg SUBCUT Q24H [facility] Last Admin: 03/18/19 17:30 Dose: 40 mg Metoprolol Succinate (Toprol Xl Tab*) 100 mg PO BEDTIME [facility] Last Admin: 03/17/19 22:32 Dose: 100 mg Sertraline HCl (Zoloft*) 25 mg PO DAILY [facility] Last Admin: 03/18/19 08:12 Dose: 25 mg Vital Signs - 8 hr 03/18/19 03/18/19 10:56 15:18 Temperature 36.1 C 36.8 C Pulse Rate 78 77 Respiratory 15 20 Rate Blood Pressure 108/65 112/53 (mmHg) O2 Sat by Pulse 100 100 Oximetry Oxygen Devices in Use Now: None Appearance: alert, no distress Ears/Nose/Mouth/Throat: Clear Oropharnyx Respiratory: Clear to Auscultation Cardiovascular: NL Sounds; No Murmurs; No JVD, RRR Neurological: - - alert, cooperative Lines/Tubes/Other Access: Clean, Dry and Intact Peripheral IV Nutrition: Taking PO's Result Diagrams: 03/12/19 12:25 03/15/19 05:55 Assess/Plan/Problems-Billing Assessment: 73M with a history of normal pressure hydrocephalus presents with weakness, urinary incontinence, and intermittent episodes of confusion. His labs, brain CT and brain MRI are unrevealing for etiology of acute change. - Patient Problems (1) Parkinsons disease Current Visit: Yes Status: Acute Priority: High Code(s): G20 - PARKINSON' S DISEASE SNOMED Code(s): 25066566 Comment: -Parkinson's disease new diagnosis; continue PT/OT -Trial of Sinemet started yesterday, tolerating increase, may be walking better -PMRU not able to take, will have STR. (2) Hypertension Current Visit: Yes Status: Acute Priority: Medium Code(s): I10 - ESSENTIAL (PRIMARY) HYPERTENSION SNOMED Code(s): 01676640 Comment: -cont metoprolol -Good control (3) NPH (normal pressure hydrocephalus) Current Visit: Yes Status: Acute Priority: High Code(s): G91.2 - ( IDIOPATHIC) NORMAL PRESSURE HYDROCEPHALUS SNOMED Code(s): 50254904 Comment: - Large volume LP in 2016 with unclear improvement in symptoms. - cont Diamox (4) DVT prophylaxis Current Visit: Yes Status: Acute Priority: Low Code(s): Z29.9 - ENCOUNTER FOR PROPHYLACTIC MEASURES, UNSPECIFIED SNOMED Code(s): 667442264 Comment: - SC lovenox Status and Disposition: Ready for discharge to [facility].
[2019-03-18] MEDS: Metoprolol Succinate XL TAB* 100 MG PO SCH (20:56)
[2019-03-19] MEDS: acetaZOLAMIDE TAB* 250 MG PO SCH ×2 (07:39→20:39)
[2019-03-19] MEDS: Carbidopa/Levodop 25/100 MG TAB(*) PO SCH ×2 (07:39→20:39)
[2019-03-19] MEDS: Sertraline* 25 MG TAB PO SCH (07:39)
[2019-03-19] MEDS: Enoxaparin(*) 40 MG/0.4 ML SYR SUBCUT SCH (17:28)
--- NOTE | 2019-03-19 17:29 | PN ---
Subjective Date of Service: 03/19/19 Interval History: Patient has no complaints. He is not sure why he is here. Walking in mace w/ PT. Family History: Unchanged from Admission Social History: Unchanged from Admission Past Medical History: Unchanged from Admission Objective Active Medications: Acetazolamide (Diamox Tab*) 250 mg PO BID [facility] Last Admin: 03/19/19 07:39 Dose: 250 mg Carbidopa/Levodopa (Sinemet 25/100 Tab(*)) 1 tab PO BID [facility] Last Admin: 03/19/19 07:39 Dose: 1 tab Enoxaparin Sodium (Lovenox(*)) 40 mg SUBCUT Q24H [facility] Last Admin: 03/18/19 17:30 Dose: 40 mg Metoprolol Succinate (Toprol Xl Tab*) 100 mg PO BEDTIME [facility] Last Admin: 03/18/19 20:56 Dose: 100 mg Sertraline HCl (Zoloft*) 25 mg PO DAILY [facility] Last Admin: 03/19/19 07:39 Dose: 25 mg Vital Signs - 8 hr 03/19/19 03/19/19 11:10 15:27 Temperature 36.2 C 36.3 C Pulse Rate 67 80 Respiratory 20 18 Rate Blood Pressure 113/54 116/49 (mmHg) O2 Sat by Pulse 100 100 Oximetry Oxygen Devices in Use Now: None Appearance: alert, NAD Respiratory: Clear to Auscultation Cardiovascular: NL Sounds; No Murmurs; No JVD Abdominal: NL Sounds; No Tenderness; No Distention Neurological: - - oriented to self only Lines/Tubes/Other Access: Clean, Dry and Intact Peripheral IV Result Diagrams: 03/12/19 12:25 03/15/19 05:55 Microbiology and Other Data: Microbiology 03/12/19 13:51 Urine Urine Culture - Final No Growth (<1,000 CFU/mL) 03/12/19 12:25 Blood Venous Aerobic Blood Culture - Preliminary 03/12/19 12:25 Blood Venous Anaerobic Blood Culture - Preliminary No Growth Day 4 No Growth Day 4 03/12/19 12:25 Blood Venous Aerobic Blood Culture - Preliminary 03/12/19 12:25 Blood Venous Anaerobic Blood Culture - Preliminary No Growth Day 4 No Growth Day 4 Assess/Plan/Problems-Billing Assessment: 73M with a history of normal pressure hydrocephalus presents with weakness, urinary incontinence, and intermittent episodes of confusion. His labs, brain CT and brain MRI are unrevealing for etiology of acute change. - Patient Problems (1) Parkinsons disease Current Visit: Yes Status: Acute Priority: High Code(s): G20 - PARKINSON' S DISEASE SNOMED Code(s): 07577413 Comment: -Parkinson's disease new diagnosis; continue PT/OT -Trial of Sinemet started yesterday, tolerating increase, may be walking better -PMRU not able to take, spouse has specific demands re STR vs home care (2) Hypertension Current Visit: Yes Status: Acute Priority: Medium Code(s): I10 - ESSENTIAL (PRIMARY) HYPERTENSION SNOMED Code(s): 11015279 Comment: -cont metoprolol -Good control (3) NPH (normal pressure hydrocephalus) Current Visit: Yes Status: Acute Priority: High Code(s): G91.2 - ( IDIOPATHIC) NORMAL PRESSURE HYDROCEPHALUS SNOMED Code(s): 62865284 Comment: - Large volume LP in 2016 with unclear improvement in symptoms. - cont Diamox (4) DVT prophylaxis Current Visit: Yes Status: Acute Priority: Low Code(s): Z29.9 - ENCOUNTER FOR PROPHYLACTIC MEASURES, UNSPECIFIED SNOMED Code(s): 263764716 Comment: - SC lovenox Status and Disposition: Ready for discharge to home or STR, discharge is being appealed by .
[2019-03-19] MEDS: Metoprolol Succinate XL TAB* 100 MG PO SCH (20:39)
[2019-03-20] MEDS: acetaZOLAMIDE TAB* 250 MG PO SCH ×2 (08:56→20:30)
[2019-03-20] MEDS: Sertraline* 25 MG TAB PO SCH (08:56)
[2019-03-20] MEDS: Carbidopa/Levodop 25/100 MG TAB(*) PO SCH ×2 (08:56→20:30)
--- NOTE | 2019-03-20 13:50 | PN ---
Subjective Date of Service: 03/20/19 Interval History: No acute events overnight. Patient pleasant and without complaints this morning. Able to walk over 700 feet. Pending home tomorrow. Objective Active Medications: Acetazolamide (Diamox Tab*) 250 mg PO BID [facility] Last Admin: 03/20/19 08:56 Dose: 250 mg Carbidopa/Levodopa (Sinemet 25/100 Tab(*)) 1 tab PO BID [facility] Last Admin: 03/20/19 08:56 Dose: 1 tab Enoxaparin Sodium (Lovenox(*)) 40 mg SUBCUT Q24H [facility] Last Admin: 03/19/19 17:28 Dose: 40 mg Metoprolol Succinate (Toprol Xl Tab*) 100 mg PO BEDTIME [facility] Last Admin: 03/19/19 20:39 Dose: 100 mg Sertraline HCl (Zoloft*) 25 mg PO DAILY [facility] Last Admin: 03/20/19 08:56 Dose: 25 mg Vital Signs - 8 hr 03/20/19 03/20/19 03/20/19 07:34 08:00 11:23 Temperature 97.7 F 97.3 F Pulse Rate 72 65 Respiratory 20 20 22 Rate Blood Pressure 120/59 105/58 (mmHg) O2 Sat by Pulse 100 100 99 Oximetry Oxygen Devices in Use Now: None Appearance: well appearing, smiling Eyes: No Scleral Icterus Ears/Nose/Mouth/Throat: Clear Oropharnyx, Mucous Membranes Moist Neck: NL Appearance and Movements; NL JVP, Trachea Midline Respiratory: Symmetrical Chest Expansion and Respiratory Effort, Clear to Auscultation Cardiovascular: NL Sounds; No Murmurs; No JVD, RRR Abdominal: NL Sounds; No Tenderness; No Distention, No Hepatosplenomegaly Extremities: No Edema Neurological: - - AOx1, doesn't know date/location Result Diagrams: 03/12/19 12:25 03/15/19 05:55 Microbiology and Other Data: Microbiology 03/12/19 13:51 Urine Urine Culture - Final No Growth (<1,000 CFU/mL) 03/12/19 12:25 Blood Venous Aerobic Blood Culture - Preliminary 03/12/19 12:25 Blood Venous Anaerobic Blood Culture - Preliminary No Growth Day 4 No Growth Day 4 03/12/19 12:25 Blood Venous Aerobic Blood Culture - Preliminary 03/12/19 12:25 Blood Venous Anaerobic Blood Culture - Preliminary No Growth Day 4 No Growth Day 4 Assess/Plan/Problems-Billing Assessment: 73M with a history of normal pressure hydrocephalus presents with weakness, urinary incontinence, and intermittent episodes of confusion. His labs, brain CT and brain MRI are unrevealing for etiology of acute change. - Patient Problems (1) Parkinsons disease Comment: New diagnosis. - continue PT/OT - trial of Sinemet started 03/16, tolerating increase, may be walking better - PMRU not able to take, spouse has specific demands re STR vs home care (2) NPH (normal pressure hydrocephalus) Comment: - Large volume LP in 2016 with unclear improvement in symptoms. - cont Diamox (3) Depression Comment: - cont home sertraline (4) Hypertension Comment: -cont metoprolol -Good control (5) DVT prophylaxis Comment: - SC lovenox Status and Disposition: Ready for discharge to home or STR, discharge is being appealed by .
[2019-03-20] MEDS: Enoxaparin(*) 40 MG/0.4 ML SYR SUBCUT SCH (17:13)
[2019-03-20] MEDS: Metoprolol Succinate XL TAB* 100 MG PO SCH (20:30)
[2019-03-21 07:21] LABS: Hematocrit 43 % (42-52); Hemoglobin 14.8 g/dL (14.0-18.0); Mean Platelet Volume 7.5 fL (7.4-10.4); Platelet Count 208 10^3/uL (150-450)
[2019-03-21 07:41] LABS: EGFR African American 87.9 (>60); EGFR Non-African American 72.6 (>60)
[2019-03-21] MEDS: acetaZOLAMIDE TAB* 250 MG PO SCH (09:47)
[2019-03-21] MEDS: Sertraline* 25 MG TAB PO SCH (09:47)
[2019-03-21] MEDS: Carbidopa/Levodop 25/100 MG TAB(*) PO SCH (09:47)
[2019-03-21 11:56] VITALS: BP 109/61
--- NOTE | 2019-03-21 13:01 | DS ---
CC: Dr. Ric Lund; Dr. Ganesh Zavala * DISCHARGE SUMMARY: DATE OF ADMISSION: 03/12/19 DATE OF DISCHARGE: 03/21/19 PRIMARY CARE PHYSICIAN: Dr. Ric Lund. NEUROLOGIST: Dr. Ganesh Zavala. PRIMARY DIAGNOSES: 1. Possible Parkinson's disease versus Lewy body dementia. 2. Mechanical falls and weakness possibly due to problem #1. 3. Normal pressure hydrocephalus. SECONDARY DIAGNOSES: 1. Major depressive disorder. 2. Hypertension. CONSULTS: Dr. Ganesh Zavala of Neurology. DISCHARGE MEDICATIONS: 1. Metoprolol tartrate 50 mg twice a day. 2. Acetazolamide 250 mg twice a day. 3. Sinemet 25/100 one tab twice a day. 4. Sertraline 25 mg daily. HISTORY OF PRESENT ILLNESS: Mr. Holley is a 73-year-old man with hypertension , likely NPH, who has presented with progressive weakness and multiple falls over several days. Of note, the patient is a poor historian and was unable to answer most questions, so this history is obtained from the chart and his . The patient does state that he falls randomly at home and when he does fall he is unable to get himself up. His has difficulty bringing him up from the floor as well. The patient denies head strike, loss of consciousness. He has significant lower extremity weakness and states he falls "for the dumbest reasons" and sometimes just drops to the ground. He also recently has been experiencing incontinence of urine but not stool. He was seen by Neurosurgery 2 days prior to the presentation for his history of NPH and was at his baseline of health at that time, but since then has become increasingly more confused. HOSPITAL COURSE: In the emergency room, the patient was seen and evaluated by Dr. Ganesh Zavala of Neurology who recommended admission due to inability to care for self at home and need for physical therapy evaluation. The patient underwent brain MRI which was unrevealing for cause of his recent symptoms. Neurology consult was most worried about Parkinson's dementia versus Lewy body dementia given cogwheeling on exam, shuffled gait, and occasional inappropriateness. Of note, during hospitalization, the patient did become sexually inappropriate with nursing. The patient's labs and imaging were unconcerning and the patient was able to work well with physical therapy without further falls. It was recommended that he receive skilled physical therapy services after discharge. The patient's prefers that he not return home as she feels that she is unable to care for him and she is pending hospital bed and recliner chair with lift. The patient's only accepted [facility] or [facility] and refused to attempt to go to and other locations. However, the patient was declined from both of these facilities given his Parkinson's diagnosis, PMRU is also pursued but the patient was declined from this facility. The patient was medically cleared for discharge; however, did appeal discharge. She states no women can be in her home when she is not present and all accommodations were made to have male physical therapist followup with the patient at home. While was appealing discharge , she tried to ensure medical equipment at home was established in a working order prior to accepting the patient home for discharge by 03/21/19. Per neurology consult recommendations, the patient was started on Sinemet and it is noted that his ambulation seemed to improve after the addition of this medication. REVIEW OF SYSTEMS: On the day of discharge, a 10-point review of systems was performed with the patient and all symptoms were negative. He remains pleasantly demented and aware of self without knowing location or date. PHYSICAL EXAMINATION: Afebrile, heart rate 60, blood pressure 121/66, respiratory rate 18, oxygen saturation 98% on room air. In general, he is a well-appearing man in no acute distress. He is interactive, smiling. HEENT: Moist mucous membranes. OP clear. Neck: Supple. Lungs: Clear to auscultation bilaterally. Heart: Regular rate and rhythm. No murmurs, gallops , or rubs. Abdomen: Soft, nontender, and nondistended. Extremities: Warm and well perfused without evidence of edema. PERTINENT STUDIES AND LABS: CBC unremarkable. BMP and LFTs unremarkable. ESR 3 and CRP 1.8. TSH 1.79. B12 of [address] noted ventriculomegaly suggestive of a communicating hydrocephalus similar to prior month. Brain MRI without acute intracranial process evident. No significant change in magnitude of lateral and third ventricle dilatation compared with 02/15/19 MRI and May 2015. Involutional change and stigmata of chronic small vessel ischemic disease is noted. DISCHARGE PLAN: The patient will be discharged home with his and will have a home VNS evaluation for physical therapy. He is to continue on his home medications as before with the addition of carbidopa/levodopa. The patient needs to follow up with Dr. Ganesh Zavala of Neurology who may refer the patient to [facility] in [place] versus increase his Parkinson's medication dose. The patient and his were given return precautions which include but are not limited to worsening falls or new symptoms of fever, chest pain, cough, shortness of breath, or dysuria. DIET: Healthy diet, low in processed foods. ACTIVITY: As tolerated. DISPOSITION: To home. CONDITION: Improved. TIME SPENT: Approximately 60 minutes was spent on discharge of this patient, more than half of which was spent with care coordination at bedside for interview and exam. [id number]/CPS #: [id number]
== END 2019-03-21 13:20 | disposition home or self-care (01) | DRG 57 ==
LOC: ED 11:57 → MED 16:20
PROVIDERS: ADMIT Internal Medicine; ATTEND Internal Medicine
DX: G20 Parkinson's disease (principal); G91.2 (Idiopathic) normal pressure hydrocephalus; E78.5 Hyperlipidemia, unspecified; R29.6 Repeated falls; F32.9 Major depressive disorder, single episode, unspecified; I10 Essential (primary) hypertension; F02.80 Dementia in other diseases classified elsewhere, unspecified severity, without behavioral disturbance, psychotic disturbance, mood disturbance, and anxiety; R32 Unspecified urinary incontinence; G31.83 Neurocognitive disorder with Lewy bodies; Z79.899 Other long term (current) drug therapy; Z88.8 Allergy status to other drugs, medicaments and biological substances; Z88.6 Allergy status to analgesic agent; Z87.891 Personal history of nicotine dependence
CPT/HCPCS: 36415; 70450; 70551; 71045; 80048; 80053; 81003; 81015; 82550; 82565; 82607; 82746; 83605; 83735; 83874; 84439; 84443; 84484; 85014; 85018; 85025; 85049; 85610; 85652; 85730; 86140; 87040; 87086; 90686; 93005; 99284; A9270-GY; J1650

== ENCOUNTER 2019-11-16 09:31 | Inpatient (IN) ==
[~2019-11-16 09:31] MED LIST: Buffered Lidocaine 1% SYRIN 1 ml INTRADERM ONE; Lactated Ringers 1000 ml BAG 1,000 ML IV SCH; Lidocaine 2% PF 5 ML VIAL ONE; Midazolam 2 mg/2 ml VIAL 1 mg/ml 2 ml VIAL (2 mg) ONE; Phenylephrine IV 10 MG/ML 1 ml VIAL ONE; Propofol 10 MG/ML 20 ML BTL ONE; Rocuronium 50 mg VIAL 10 mg/ml 5 ml VIAL (50 mg) ONE; fentaNYL 100 mcg/2 ml 50 MCG/ML VIAL ONE
[2019-11-16] MEDS ORDERED: ceFAZolin 2 GM PREMIX 2 GM/50 ML BAG ONE (09:54)
[2019-11-16] MEDS ORDERED: Thrombin 5,000 UNITS 1 APPLIC KIT - topical use - TOPICAL ONE (10:36)
[2019-11-16] MEDS ORDERED: Lidocaine 1% w EPI 1:100,000 MDV 20 ML VIAL ONE (10:36)
[2019-11-16] MEDS ORDERED: Bacitracin INJECTION 50,000 UNITS ONE (10:37)
[2019-11-17] MEDS ORDERED: HYDROcodone/ACETAMIN 5/325 mg TAB PO PRN ×2 (16:35)
[2019-11-17] MEDS ORDERED: Ondansetron 4 mg VIAL 2 MG/ML 2 ml VIAL IV PRN (16:35)
[2019-11-17] MEDS ORDERED: Morphine 2 MG/ML SYRINGE IV PRN (16:44)
[2019-11-17] MEDS: Lactated Ringers 1000 ml BAG 1,000 ML IV SCH (17:56)
[2019-11-18] MEDS ORDERED: Metoprolol Tartrate 5 mg VIAL 5 ml VIAL (1 mg/ml) IV ONE ×2 (04:44→18:33)
[2019-11-18] MEDS: Lactated Ringers 1000 ml BAG 1,000 ML IV SCH (07:01)
[2019-11-18] MEDS: Carbidopa/Levodop 25/100 MG TAB PO SCH ×3 (08:52→20:48)
[2019-11-18 08:53] LABS: Hematocrit 36 % (42-52); Hemoglobin 12.4 g/dL (14.0-18.0); Mean Corpuscular HGB Conc 34 g/dL (31-36); Mean Corpuscular Hemoglobin 31 pg (27-31); Mean Corpuscular Volume 89 fL (80-94); Mean Platelet Volume 6.8 fL (7.4-10.4); Platelet Count 259 10^3/uL (150-450); Red Blood Count 4.06 10^6 /uL (4.18-5.48); Red Cell Distribution Width 14 % (10-15); White Blood Count 11.2 10^3/uL (3.5-10.8)
[2019-11-18 09:11] LABS: Calcium 8.2 mg/dL (8.6-10.3); EGFR African American 100.1 (>60); EGFR Non-African American 82.7 (>60); Potassium 3.8 mmol/L (3.5-5.0)
[2019-11-18] MEDS ORDERED: Labetalol IV 5 MG/ML 20 ml VIAL IV PUSH PRN (18:31)
[2019-11-19] MEDS ORDERED: Enalaprilat IV 1.25 mg/ml 1 ml VIAL (1.25 MG) IV PRN (02:12)
[2019-11-19] MEDS: Carbidopa/Levodop 25/100 MG TAB PO SCH ×3 (08:59→20:18)
[2019-11-19] MEDS ORDERED: Influenza VAC *QUAD* 2020-21* 0.5 ML SYRINGE IM ONE (09:00)
[2019-11-20] MEDS ORDERED: Polyethylene Glycol 3350 17 GM PACKET PO PRN (05:40)
[2019-11-20] MEDS: Carbidopa/Levodop 25/100 MG TAB PO SCH (09:21)
[2019-11-20 11:23] VITALS: BP 108/64
== END 2019-11-20 13:45 | disposition home health service (06) | DRG 33 ==
LOC: OR 09:31 → AA 11-17 11:16 → ICU 11-17 16:35 → SSU 11-18 11:05
PROVIDERS: ADMIT Neurological Surgery; ATTEND Neurological Surgery

== ENCOUNTER 2021-01-30 14:46 | Observation (INO) ==
[2021-01-30 17:33] LABS: ABS Eosinophils 0.1 10^3/ul (0-0.6); ABS Lymphocytes 1.4 10^3/ul (1.0-4.8); ABS Monocytes 0.6 10^3/ul (0-0.8); ABS Neutrophils 4.8 10^3/ul (1.5-7.7); Eosinophil % 0.8 %; Hematocrit 44 % (42-52); Lymphocyte % 20.9 %; Mean Corpuscular HGB Conc 34 g/dL (31-36); Mean Corpuscular Hemoglobin 30 pg (27-31); Mean Corpuscular Volume 89 fL (80-94); Mean Platelet Volume 7.3 fL (7.4-10.4); Platelet Count 213 10^3/uL (150-450); Red Blood Count 4.96 10^6 /uL (4.18-5.48); Red Cell Distribution Width 15 % (10-15); White Blood Count 6.8 10^3/uL (3.5-10.8)
[2021-01-30 17:43] LABS: Activated Partial Thrombo Time 32.1 seconds (26.0-38.0); INR 1.18 (0.86-1.15)
[2021-01-30 17:53] LABS: Calcium 9.3 mg/dL (8.6-10.3); Potassium 3.9 mmol/L (3.5-5.0); eGFR CKD-EPI 73.6 (>60)
[2021-01-30 20:34] LABS: Urine Appearance Cloudy; Urine Bilirubin Negative (Negative); Urine Blood 3+ (Negative); Urine Color Yellow; Urine Glucose Negative (Negative); Urine Ketones 1+ (Negative); Urine Nitrite Negative (Negative); Urine Protein 1+(30 mg/dL) (Negative); Urine Specific Gravity 1.042 (1.002-1.030); Urine Urobilinogen Negative (Negative)
[2021-01-30] MEDS: Carbidopa/Levodop 25/100 MG TAB PO SCH (20:42)
[2021-01-30 20:44] LABS: Urine Bacteria Absent (Absent); Urine Red Blood Cell 3+(>10/hpf) (Absent); Urine White Blood Cell Absent (Absent)
[2021-01-31] MEDS ORDERED: Flu vaccine *QUAD* 2021-22* 0.5 ML SYRINGE IM ONE (09:00)
[2021-01-31] MEDS ORDERED: Pneumococcal Vac 23-Polyvalent IM ONE (09:00)
[2021-01-31] MEDS: Carbidopa/Levodop 25/100 MG TAB PO SCH ×3 (09:30→20:21)
[2021-01-31 10:54] LABS: ABS Eosinophils 0.1 10^3/ul (0-0.6); ABS Lymphocytes 1.3 10^3/ul (1.0-4.8); ABS Monocytes 0.5 10^3/ul (0-0.8); ABS Neutrophils 4.1 10^3/ul (1.5-7.7); Eosinophil % 1.1 %; Hematocrit 45 % (42-52); Hemoglobin 15.1 g/dL (14.0-18.0); Lymphocyte % 22.5 %; Mean Corpuscular HGB Conc 34 g/dL (31-36); Mean Corpuscular Hemoglobin 30 pg (27-31); Mean Corpuscular Volume 89 fL (80-94); Mean Platelet Volume 7.3 fL (7.4-10.4); Platelet Count 207 10^3/uL (150-450); Red Cell Distribution Width 14 % (10-15)
[2021-01-31 11:10] LABS: Albumin 3.8 g/dL (3.2-5.2); Albumin/Globulin Ratio 1.2 (1-3); Calcium 8.9 mg/dL (8.6-10.3); Globulin 3.2 g/dL (2-4); Potassium 4.3 mmol/L (3.5-5.0); Total Bilirubin 0.6 mg/dL (0.2-1.0); eGFR CKD-EPI 81.9 (>60)
[2021-02-01] MEDS: Carbidopa/Levodop 25/100 MG TAB PO SCH ×2 (09:14→14:09)
[2021-02-01 12:00] VITALS: BP 153/83
== END 2021-02-01 15:22 | disposition home or self-care (01) ==
LOC: EDHOLD 14:46 → ED 14:46 → SUATTDRO 17:08 → MEDTELE 21:37
PROVIDERS: ADMIT Internal Medicine; ATTEND Internal Medicine

== ENCOUNTER 2021-02-20 09:44 | Inpatient (IN) ==
[2021-02-20 11:31] LABS: ABS Lymphocytes 1.3 10^3/ul (1.0-4.8); ABS Monocytes 0.7 10^3/ul (0-0.8); ABS Neutrophils 6.2 10^3/ul (1.5-7.7); Eosinophil % 0.4 %; Hematocrit 43 % (42-52); Hemoglobin 14.7 g/dL (14.0-18.0); Lymphocyte % 15.8 %; Mean Corpuscular HGB Conc 34 g/dL (31-36); Mean Corpuscular Hemoglobin 30 pg (27-31); Mean Corpuscular Volume 88 fL (80-94); Mean Platelet Volume 6.9 fL (7.4-10.4); Platelet Count 309 10^3/uL (150-450); Red Blood Count 4.85 10^6 /uL (4.18-5.48); Red Cell Distribution Width 14 % (10-15); White Blood Count 8.2 10^3/uL (3.5-10.8)
[2021-02-20 11:55] LABS: Albumin 4.2 g/dL (3.2-5.2); Albumin/Globulin Ratio 1.2 (1-3); Calcium 9.1 mg/dL (8.6-10.3); Globulin 3.4 g/dL (2-4); Potassium 4.2 mmol/L (3.5-5.0); Total Bilirubin 0.4 mg/dL (0.2-1.0); Total Protein 7.6 g/dL (6.4-8.9); eGFR CKD-EPI 68.9 (>60)
[2021-02-20 15:30] LABS: INR 1.24 (0.86-1.15)
[2021-02-20] MEDS ORDERED: Heparin 5000 UNITS/ML 1 mL VIAL SUBCUT ONE (17:00)
[2021-02-20] MEDS: Carbidopa/Levodop 25/100 MG TAB PO SCH ×2 (17:48→21:30)
[2021-02-21 05:49] LABS: Hematocrit 38 % (42-52); Hemoglobin 12.8 g/dL (14.0-18.0); Mean Corpuscular HGB Conc 34 g/dL (31-36); Mean Corpuscular Hemoglobin 30 pg (27-31); Mean Corpuscular Volume 88 fL (80-94); Mean Platelet Volume 7.1 fL (7.4-10.4); Platelet Count 274 10^3/uL (150-450); Red Cell Distribution Width 14 % (10-15); White Blood Count 6.2 10^3/uL (3.5-10.8)
[2021-02-21 05:55] LABS: INR 1.29 (0.86-1.15)
[2021-02-21 06:01] LABS: Calcium 8.6 mg/dL (8.6-10.3)
[2021-02-21 06:06] LABS: eGFR CKD-EPI 80.9 (>60)
[2021-02-21] MEDS: Carbidopa/Levodop 25/100 MG TAB PO SCH ×4 (09:46→21:57)
[2021-02-21 11:45] LABS: Urine Appearance Clear; Urine Bilirubin Negative (Negative); Urine Blood Negative (Negative); Urine Color Yellow; Urine Glucose Negative (Negative); Urine Ketones Negative (Negative); Urine Nitrite Negative (Negative); Urine Protein Negative (Negative); Urine Specific Gravity 1.024 (1.002-1.030); Urine Urobilinogen Negative (Negative)
[2021-02-21] MEDS ORDERED: Enoxaparin 40 MG/0.4 ML SYR SUBCUT SCH (21:00)
[2021-02-22] MEDS: Carbidopa/Levodop 25/100 MG TAB PO SCH ×2 (08:42→14:04)
[2021-02-22 15:30] VITALS: BP 145/76
== END 2021-02-22 17:30 | disposition home or self-care (01) | DRG 57 ==
LOC: ED 09:44 → EDHOLD 14:58 → SUATTDRO 14:58 → SSU 17:04
PROVIDERS: ADMIT Internal Medicine; ATTEND Student in an Organized Health Care Education/Training Program

== ENCOUNTER 2021-06-26 11:30 | Inpatient (IN) ==
[2021-06-26 12:15] LABS: ABS Lymphocytes 1.6 10^3/ul (1.0-4.8); ABS Monocytes 0.5 10^3/ul (0-0.8); ABS Neutrophils 6.5 10^3/ul (1.5-7.7); Eosinophil % 0.4 %; Hematocrit 45 % (42-52); Hemoglobin 15.1 g/dL (14.0-18.0); Lymphocyte % 18.5 %; Mean Corpuscular HGB Conc 33 g/dL (31-36); Mean Corpuscular Hemoglobin 29 pg (27-31); Mean Corpuscular Volume 88 fL (80-94); Mean Platelet Volume 7.1 fL (7.4-10.4); Platelet Count 247 10^3/uL (150-450); Red Blood Count 5.16 10^6 /uL (4.18-5.48); Red Cell Distribution Width 15 % (10-15); White Blood Count 8.7 10^3/uL (3.5-10.8)
[2021-06-26 12:34] LABS: INR 1.13 (0.86-1.15)
[2021-06-26] MEDS ORDERED: Iodixanol (CONTRAST) 320 MG/ML 100 ML SDV IV ONE (12:58)
[2021-06-26 13:23] LABS: Albumin 3.9 g/dL (3.2-5.2); Albumin/Globulin Ratio 1.2 (1-3); Calcium 8.9 mg/dL (8.6-10.3); Globulin 3.2 g/dL (2-4); HDL Cholesterol 33.2 mg/dL; Potassium 4.2 mmol/L (3.5-5.0); Total Bilirubin 0.3 mg/dL (0.2-1.0); Total Protein 7.1 g/dL (6.4-8.9); eGFR CKD-EPI 80.9 (>60)
[2021-06-26 14:22] LABS: Urine Appearance Clear; Urine Bilirubin Negative (Negative); Urine Blood 1+ (Negative); Urine Color Yellow; Urine Glucose Negative (Negative); Urine Ketones Trace (Negative); Urine Nitrite Negative (Negative); Urine Protein Negative (Negative); Urine Specific Gravity 1.055 (1.002-1.030); Urine Urobilinogen Negative (Negative)
[2021-06-26 14:26] LABS: Urine Bacteria Absent (Absent); Urine Red Blood Cell Trace(0-2/hpf) (Absent); Urine Squamous Epithelial Cell Present (Absent); Urine White Blood Cell Trace(0-5/hpf) (Absent)
[2021-06-26 14:36] LABS: High Sensitivity Troponin 1 Hr 3 pg/mL (<20)
[2021-06-26 20:15] LABS: Urine Appearance Clear; Urine Bilirubin Negative (Negative); Urine Blood 2+ (Negative); Urine Color Yellow; Urine Glucose Negative (Negative); Urine Ketones Negative (Negative); Urine Nitrite Negative (Negative); Urine Protein Negative (Negative); Urine Specific Gravity 1.044 (1.002-1.030); Urine Urobilinogen Negative (Negative)
[2021-06-26 20:35] LABS: Urine Bacteria 1+ (Absent); Urine Red Blood Cell 3+(>10/hpf) (Absent); Urine White Blood Cell Trace(0-5/hpf) (Absent)
[2021-06-26] MEDS: Carbidopa/Levodop 25/100 MG TAB PO SCH (21:16)
[2021-06-27 05:09] LABS: ABS Eosinophils 0.1 10^3/ul (0-0.6); ABS Lymphocytes 1.5 10^3/ul (1.0-4.8); ABS Monocytes 0.6 10^3/ul (0-0.8); ABS Neutrophils 6.1 10^3/ul (1.5-7.7); Hematocrit 41 % (42-52); Hemoglobin 13.5 g/dL (14.0-18.0); Lymphocyte % 18.2 %; Mean Corpuscular HGB Conc 33 g/dL (31-36); Mean Corpuscular Hemoglobin 29 pg (27-31); Mean Corpuscular Volume 86 fL (80-94); Mean Platelet Volume 7.3 fL (7.4-10.4); Platelet Count 226 10^3/uL (150-450); Red Cell Distribution Width 14 % (10-15); White Blood Count 8.3 10^3/uL (3.5-10.8)
[2021-06-27 05:27] LABS: Calcium 8.3 mg/dL (8.6-10.3); Magnesium 2.1 mg/dL (1.9-2.7); Potassium 4.2 mmol/L (3.5-5.0); eGFR CKD-EPI 88.4 (>60)
[2021-06-27 08:30] LABS: C Reactive Protein 15.24 mg/L (<8.01)
[2021-06-27] MEDS: Carbidopa/Levodop 25/100 MG TAB PO SCH ×3 (10:50→20:33)
[2021-06-28 05:24] LABS: ABS Eosinophils 0.1 10^3/ul (0-0.6); ABS Lymphocytes 1.5 10^3/ul (1.0-4.8); ABS Monocytes 0.6 10^3/ul (0-0.8); ABS Neutrophils 5.8 10^3/ul (1.5-7.7); Hematocrit 43 % (42-52); Hemoglobin 14.3 g/dL (14.0-18.0); Lymphocyte % 18.3 %; Mean Corpuscular HGB Conc 33 g/dL (31-36); Mean Corpuscular Hemoglobin 29 pg (27-31); Mean Corpuscular Volume 87 fL (80-94); Mean Platelet Volume 7.3 fL (7.4-10.4); Platelet Count 247 10^3/uL (150-450); Red Cell Distribution Width 15 % (10-15)
[2021-06-28 05:47] LABS: Calcium 8.6 mg/dL (8.6-10.3); Magnesium 2.2 mg/dL (1.9-2.7); Phosphorus 3.1 mg/dL (2.5-5.0); Potassium 4.3 mmol/L (3.5-5.0); eGFR CKD-EPI 82.9 (>60)
[2021-06-28] MEDS: Carbidopa/Levodop 25/100 MG TAB PO SCH ×3 (08:45→20:58)
[2021-06-29 04:22] LABS: ABS Eosinophils 0.1 10^3/ul (0-0.6); ABS Lymphocytes 1.6 10^3/ul (1.0-4.8); ABS Monocytes 0.6 10^3/ul (0-0.8); ABS Neutrophils 7.6 10^3/ul (1.5-7.7); Eosinophil % 0.9 %; Hematocrit 45 % (42-52); Lymphocyte % 15.9 %; Mean Corpuscular HGB Conc 34 g/dL (31-36); Mean Corpuscular Hemoglobin 29 pg (27-31); Mean Corpuscular Volume 87 fL (80-94); Mean Platelet Volume 7.4 fL (7.4-10.4); Platelet Count 246 10^3/uL (150-450); Red Blood Count 5.12 10^6 /uL (4.18-5.48); Red Cell Distribution Width 15 % (10-15)
[2021-06-29 04:53] LABS: Calcium 8.6 mg/dL (8.6-10.3); Magnesium 2.3 mg/dL (1.9-2.7); Potassium 4.2 mmol/L (3.5-5.0); eGFR CKD-EPI 82.9 (>60)
[2021-06-29 06:03] LABS: Body Fluid Source Cerebral Spinal
[2021-06-29 06:20] LABS: CSF Glucose 86 mg/dL (40-70)
[2021-06-29 06:47] LABS: Body Fluid Appearance Clear; Body Fluid Color Colorless; Body Fluid WBC 0 /mcL; CSF Tube # 4
[2021-06-29] MEDS ORDERED: fentaNYL 100 mcg/2 ml 50 MCG/ML VIAL IV PRN (07:26)
[2021-06-29] MEDS ORDERED: Ondansetron 4 mg VIAL 2 MG/ML 2 ml VIAL IV PRN (07:26)
[2021-06-29] MEDS ORDERED: HYDROcodone/ACETAMIN 5/325 mg TAB PO PRN (07:26)
[2021-06-29] MEDS ORDERED: Naloxone 0.4 mg VIAL 0.4 mg/ml 1 ml VIAL IV PRN (07:26)
[2021-06-29] MEDS ORDERED: Metoclopramide 5 MG/ML VIAL (10 mg) IV PRN (07:26)
[2021-06-29] MEDS ORDERED: fentaNYL 250 mcg/5 ml 50 MCG/ML 5 ml VIAL (250 MCG) ONE (07:32)
[2021-06-29] MEDS ORDERED: Rocuronium 50 mg VIAL 10 mg/ml 5 ml VIAL (50 mg) ONE ×2 (07:33→09:42)
[2021-06-29] MEDS ORDERED: Propofol 10 MG/ML 20 ML BTL ONE (07:33)
[2021-06-29] MEDS ORDERED: Lidocaine 1% w EPI 1:100,000 MDV 20 ML VIAL ONE (07:35)
[2021-06-29] MEDS ORDERED: Thrombin 5,000 UNITS 1 APPLIC KIT - topical use - TOPICAL ONE (07:35)
[2021-06-29] MEDS ORDERED: Vancomycin 1,000 MG VIAL ONE ×2 (08:09→08:14)
[2021-06-29] MEDS ORDERED: ceFAZolin 2 GM in NS PREMIX 2 GM/100 ML BAG IVPB ONE (08:51)
[2021-06-29] MEDS ORDERED: Phenylephrine IV 10 MG/ML 1 ml VIAL ONE ×2 (09:34→10:17)
[2021-06-29] MEDS ORDERED: EPHEDrine (Pressors) 50 MG/ML VIAL ONE (10:18)
[2021-06-29] MEDS ORDERED: Gelfoam 12-7 ADSORBABL SPONGE ONE (10:35)
[2021-06-29] MEDS: Carbidopa/Levodop 25/100 MG TAB PO SCH ×3 (10:48→20:49)
[2021-06-29] MEDS ORDERED: Vancomycin 1,000 MG in NS 0.9% 250 ml 250 ML IVPB ONE (18:17)
[2021-06-29] MEDS ORDERED: Vancomycin per Pharmacy 1 EA NOTE FOLLOW UP SCH (19:00)
[2021-06-29] MEDS: Cefepime 2 GM in Dextrose 2 GM/50 ML BAG IV SCH (20:49)
[2021-06-30 05:57] LABS: ABS Eosinophils 0.1 10^3/ul (0-0.6); ABS Lymphocytes 1.4 10^3/ul (1.0-4.8); ABS Monocytes 0.5 10^3/ul (0-0.8); ABS Neutrophils 9.4 10^3/ul (1.5-7.7); Eosinophil % 0.7 %; Hematocrit 39 % (42-52); Hemoglobin 12.9 g/dL (14.0-18.0); Mean Corpuscular HGB Conc 33 g/dL (31-36); Mean Corpuscular Hemoglobin 29 pg (27-31); Mean Corpuscular Volume 86 fL (80-94); Mean Platelet Volume 7.5 fL (7.4-10.4); Platelet Count 224 10^3/uL (150-450); Red Blood Count 4.52 10^6 /uL (4.18-5.48); Red Cell Distribution Width 15 % (10-15); White Blood Count 11.4 10^3/uL (3.5-10.8)
[2021-06-30 06:17] LABS: Blood Urea Nitrogen 17 mg/dL (6-24); CO2 Carbon Dioxide 26 mmol/L (22-32); Chloride 103 mmol/L (101-111); Glucose 115 mg/dL (70-100); Sodium 135 mmol/L (135-145); eGFR CKD-EPI 90.9 (>60)
[2021-06-30 06:54] LABS: Anion Gap 6 mmol/L (2-11)
[2021-06-30] MEDS: Carbidopa/Levodop 25/100 MG TAB PO SCH ×3 (08:28→20:25)
[2021-06-30] MEDS: Cefepime 2 GM in Dextrose 2 GM/50 ML BAG IV SCH ×2 (08:28→20:25)
[2021-06-30] MEDS: Vancomycin 750 MG in NS 0.9% 250 ML IVPB SCH ×2 (08:32→20:25)
[2021-06-30 09:43] LABS: Magnesium 2.1 mg/dL (1.9-2.7); Phosphorus 2.3 mg/dL (2.5-5.0); Potassium Redraw 4.3 mmol/L (3.5-5.0)
[2021-07-01 04:27] LABS: ABS Basophils 0.1 10^3/ul (0-0.2); ABS Eosinophils 0.2 10^3/ul (0-0.6); ABS Lymphocytes 1.7 10^3/ul (1.0-4.8); ABS Monocytes 0.7 10^3/ul (0-0.8); ABS Neutrophils 5.8 10^3/ul (1.5-7.7); Eosinophil % 1.9 %; Hematocrit 39 % (42-52); Hemoglobin 12.5 g/dL (14.0-18.0); Lymphocyte % 20.4 %; Mean Corpuscular HGB Conc 33 g/dL (31-36); Mean Corpuscular Hemoglobin 28 pg (27-31); Mean Corpuscular Volume 87 fL (80-94); Mean Platelet Volume 7.4 fL (7.4-10.4); Platelet Count 215 10^3/uL (150-450); Red Blood Count 4.44 10^6 /uL (4.18-5.48); Red Cell Distribution Width 15 % (10-15); White Blood Count 8.5 10^3/uL (3.5-10.8)
[2021-07-01 04:59] LABS: Calcium 8.1 mg/dL (8.6-10.3); Magnesium 2.3 mg/dL (1.9-2.7); Phosphorus 2.6 mg/dL (2.5-5.0); Potassium 4.1 mmol/L (3.5-5.0); eGFR CKD-EPI 92.2 (>60)
[2021-07-01] MEDS ORDERED: Vancomycin Trough Check NOTE FOLLOW UP ONE (07:30)
[2021-07-01] MEDS: Cefepime 2 GM in Dextrose 2 GM/50 ML BAG IV SCH (08:09)
[2021-07-01 08:57] LABS: Vancomycin Trough 7.5 mcg/mL; eGFR CKD-EPI 92.2 (>60)
[2021-07-01] MEDS ORDERED: Vancomycin 1,250 MG in NS 0.9% 250 ml 250 ML IVPB SCH ×2 (09:58→10:30)
[2021-07-01] MEDS: Carbidopa/Levodop 25/100 MG TAB PO SCH ×3 (10:14→21:08)
[2021-07-01] MEDS: Vancomycin 750 MG in NS 0.9% 250 ML IVPB SCH (10:23)
[2021-07-02] MEDS ORDERED: Ondansetron 4 mg VIAL 2 MG/ML 2 ml VIAL IV ONE (02:01)
[2021-07-02 05:33] LABS: Calcium 8.3 mg/dL (8.6-10.3); Magnesium 2.3 mg/dL (1.9-2.7); Potassium 4.4 mmol/L (3.5-5.0)
[2021-07-02 05:38] LABS: eGFR CKD-EPI 90.5 (>60)
[2021-07-02 07:02] LABS: ABS Basophils 0.1 10^3/ul (0-0.2); ABS Eosinophils 0.2 10^3/ul (0-0.6); ABS Lymphocytes 2.3 10^3/ul (1.0-4.8); ABS Monocytes 1.1 10^3/ul (0-0.8); ABS Neutrophils 9.5 10^3/ul (1.5-7.7); Eosinophil % 1.2 %; Hematocrit 39 % (42-52); Hemoglobin 12.7 g/dL (14.0-18.0); Lymphocyte % 17.7 %; Mean Corpuscular HGB Conc 33 g/dL (31-36); Mean Corpuscular Hemoglobin 28 pg (27-31); Mean Corpuscular Volume 86 fL (80-94); Mean Platelet Volume 8.3 fL (7.4-10.4); Nucleated Red Blood Cells % 0.1; Platelet Count 193 10^3/uL (150-450); Red Blood Count 4.55 10^6 /uL (4.18-5.48); Red Cell Distribution Width 15 % (10-15); White Blood Count 13.1 10^3/uL (3.5-10.8)
[2021-07-02] MEDS: Carbidopa/Levodop 25/100 MG TAB PO SCH ×3 (08:38→21:41)
[2021-07-03 05:19] LABS: ABS Eosinophils 0.2 10^3/ul (0-0.6); ABS Monocytes 0.7 10^3/ul (0-0.8); ABS Neutrophils 5.1 10^3/ul (1.5-7.7); Eosinophil % 2.4 %; Hematocrit 39 % (42-52); Hemoglobin 12.7 g/dL (14.0-18.0); Lymphocyte % 24.7 %; Mean Corpuscular HGB Conc 33 g/dL (31-36); Mean Corpuscular Hemoglobin 28 pg (27-31); Mean Corpuscular Volume 87 fL (80-94); Mean Platelet Volume 7.3 fL (7.4-10.4); Platelet Count 243 10^3/uL (150-450); Red Cell Distribution Width 14 % (10-15)
[2021-07-03 05:48] LABS: Calcium 8.4 mg/dL (8.6-10.3); Magnesium 2.3 mg/dL (1.9-2.7); Potassium 4.2 mmol/L (3.5-5.0); eGFR CKD-EPI 91.5 (>60)
[2021-07-03] MEDS ORDERED: Vancomycin Trough Check NOTE FOLLOW UP ONE (10:00)
[2021-07-03] MEDS: Carbidopa/Levodop 25/100 MG TAB PO SCH ×3 (10:06→20:10)
[2021-07-03] MEDS: Magnesium Hydroxide LIQ 30 ML UDC PO PRN (20:10)
[2021-07-03] MEDS: Senna TAB 8.6 mg TAB PO PRN (20:10)
[2021-07-04] MEDS: Magnesium Hydroxide LIQ 30 ML UDC PO PRN (09:11)
[2021-07-04] MEDS: Carbidopa/Levodop 25/100 MG TAB PO SCH ×3 (09:11→21:04)
[2021-07-05] MEDS: Carbidopa/Levodop 25/100 MG TAB PO SCH ×3 (09:58→20:16)
[2021-07-06] MEDS: Carbidopa/Levodop 25/100 MG TAB PO SCH ×3 (08:45→22:28)
[2021-07-06] MEDS: Senna TAB 8.6 mg TAB PO PRN (22:28)
[2021-07-07] MEDS: Carbidopa/Levodop 25/100 MG TAB PO SCH ×3 (09:36→22:49)
[2021-07-07] MEDS: Senna TAB 8.6 mg TAB PO PRN (22:49)
[2021-07-08] MEDS: Carbidopa/Levodop 25/100 MG TAB PO SCH (09:54)
[2021-07-08 11:58] VITALS: BP 102/65
== END 2021-07-08 14:30 | disposition home or self-care (01) | DRG 32 ==
LOC: ED 11:30 → EDHOLD 15:08 → SUATTDRO 15:08 → ICU 21:14 → SSU 07-02 17:26
PROVIDERS: ADMIT Internal Medicine; ATTEND Hospitalist